=== PATIENT | male | born 1955 | race Caucasian/White ===

== ENCOUNTER 2023-10-14 12:27 | Inpatient (IN) | payer MEDICARE, OTHER, SELFPAY ==
[2023-10-14] VITALS (14 sets, daily range): BP systolic 124–170; BP diastolic 86–111; BMI 29.9
[2023-10-14 09:05] LABS: Hematocrit 44.2 % (39.0-52.0); Mean Corp Hgb Conc. 36.2 g/dL (33.0-37.0); Mean Corpuscular Hgb 30.2 pg (27.0-31.0); Mean Corpuscular Volume 83.4 fL (80.0-94.0); Mean Platelet Volume 9.4 fL (7.4-10.4); Platelet Count 220 10^3/uL (130-400); Red Cell Dist. Width 12.2 % (11.5-14.5)
[2023-10-14] MEDS: LOW STRENGTH ASPIRIN 81 MG PO (09:15)
[2023-10-14] MEDS: NSS 283 ML IV (09:15)
[2023-10-14 09:17] LABS: Blood Urea Nitrogen 26 mg/dl (9-20); Calcium 9.5 mg/dl (8.4-10.2); Carbon Dioxide 26 mmol/L (22-30); Chloride 104 mmol/L (98-107); Estimated Creatinine Clearance 74 ml/min; Glucose 152 mg/dl (70-99); Potassium 3.9 mmol/L (3.5-5.1); Sodium 138 mmol/L (135-145); eGFR > 60.00
--- NOTE | 2023-10-14 13:23 | ITS.CL.CATH ---
Licensed Appraiser - Catheterization
Cardiac Catheterization
Procedure Report:
CARDIAC CATHETERIZATION REPORT
Date of Procedure: 10/14/2023
Referring: Denice Diaz MD
Indication: High risk stress test
HEMODYNAMIC DATA
AO: 146/88
LV: 146/12
LEFT VENTRICULOGRAPHY: Normal left ventricular wall motion with EF 59%
CORONARY ANGIOGRAPHY
Dominance: Right
Left Main: Short without focal stenosis
LAD: There is a 90% proximal LAD stenosis with poststenotic dilatation. This lesion is immediately proximal to the medium sized first diagonal branch takeoff. There is a 60% LAD stenosis spanning the takeoff of the large second septal trimming assembler
and medium to large second diagonal branch. There is a 70% mid to distal LAD stenosis and 80% apical LAD stenosis. There is slightly decremental flow in the terminal LAD
Circumflex: 30% proximal circumflex stenosis with focal eccentric 50% mid circumflex stenosis. OM1 is tiny. OM 2 is medium to large with tandem 80% and 60% proximal stenoses. OM 3 is a small to medium size vessel. The circumflex terminates with
a large OM 4 which has 60% proximal stenosis and a single small posterolateral branch
RCA: 30% proximal RCA stenosis with focal 80% mid RCA stenosis. There is 70% mid RPDA stenosis. The RCA terminates with a medium sized RPL 1 and a small RPL 2.
Closure Device: None-the procedure was performed via the right radial artery. The William's test was normal prior to the procedure.
Radiation (mGy): 348
DAP (cm2.Gy): 26.6
Fluoroscopy time: 2.8 minutes
CONCLUSIONS
1: Systemic hypertension
2: Normal left ventricular function with EF 59%
3. Severe triple-vessel CAD as described
4. Given the decremental flow into the apical LAD, we will keep the patient for inpatient CABG
5. Although full revascularization may not be possible, complete revascularization would include bypass graft to LAD, major diagonal branch OM2, OM 4, RPDA, and RPL
Copy to: Félix Astorga DO, Sangita Rogers MD
Nemesio Childs MD, FORMERLY [facility], [facility]
[2023-10-14 13:26] LABS: Glucose - Point of Care 129 mg/dl (70-99)
[2023-10-14 13:55] LABS: APTT 94.2 Sec (23.4-35.0)
--- NOTE | 2023-10-14 13:58 | CONSULT.CT ---
Addendum entered and electronically signed by Luther Stewart MD 10/15/23 09:32:
I saw and examined the patient.
The PA's note was reviewed and I agree with the note.
Comment:
I met with Mr. George today at the bedside. Relatively new diagnosis of DM, A1c he tells me ranges in the 7s. No chest pain, but underwent a stress echo/nuc study which showed regional wall motion abnormality leading to a LHC. We reviewed his
LHC and also the conduct of heart surgery. He is otherwise independent and fully functional. I discussed the STS risk associated with iso CABG. We discussed the details of CABG and he is amenable to moving forward, which is my recommendation. Plan
for surgery with me on Tuesday as a to follow case.
Original Note:
Consultation
-
Date/Time Consultation Requested: 10/14/23
Date/Time Consultation Performed: 10/14/23 1400
Requesting Provider: Dr. Nemesio Childs MD
Performing Provider: Cherelle Bender PA-C on behalf of Dr. Luther Stewart MD.
Reason for Consultation: Evaluation for coronary artery revascularization
Patient History
Physicians
Family Physician: Dr. Diaz Rogers MD.
Outpatient Lieutenant Shift Supervisor: Dr. Félix Astorga DO. [facility] Cardiology
Inpatient Lieutenant Shift Supervisor: Dr. Sean Childs MD.
History of Present Illness
Patient is an extremely pleasant 68-year-old male with a H bladder cancer, 2014 treated with multiple surgeries and chemotherapy, hypertension, hyperlipidemia, pwf-nhhawkm-bffmnpnrr diabetes mellitus type 2, new RBBB, and tobacco abuse,
former smoker (Quit in 2008. Smoked for roughly 30 years at his heaviest of 1 pack/day).
Patient was overall asymptomatic. He was referred to cardiology Dr. Félix Ordoñez DO. By his PCP for continued management of his ongoing hypertension. Upon this visit the patient was found to have a right bundle branch block. Transthoracic echo
and exercise treadmill stress test were ordered. Stress test was abnormal prompting workup with outpatient cardiac catheterization.
Subsequent cardiac catheterization performed by Dr. Childs on 10/14/23 revealed MV CAD with preserved LVEF of 59%. LAD: 90%, 60% spanning t/o of large septal scallop cutter machine. 70% mid to distal. LCx: 30% prox, 50% mid. OM1 is tiny, OM2 80 & 60% prox
stenosis. OM4 60% prox. RCA: 30% prox, 80% mid. RPDA: 70% mid.
Given the above findings, the cardiothoracic surgery service was consulted for coronary artery revascularization evaluation.
Past Medical History
Past Medical History: Other
Bladder cancer, 2014 treated with multiple surgeries and chemotherapy
Hypertension
Hyperlipidemia
Pxf-gjggttm-tllsbujus diabetes mellitus type 2
New RBBB
Tobacco abuse, former smoker (Quit in 2008. Smoked for roughly 30 years at his heaviest of 1 pack/day).
Past Surgical History
Multiple surgeries for bladder cancer
Dental History
Noncontributory
Family History
Mother: at Age (70's) and Cause of (Complications with Hodgkin's lymphoma)
Father: at Age (80s) and Cause of (Complications with brain hemorrhage)
Social History
Alcohol: None
Drug: None
Tobacco: Former Smoker (Quit in 2008. Smoked for roughly 30 years at his heaviest of 1 pack/day)
Personal: Single
Living: With Spouse
Employment: Retired (Formally worked in [employer])
Allergies
Allergy/AdvReac Type Severity Reaction Status Date / Time
No Known Drug Allergies Allergy Unknown Verified 10/14/23 08:43
Home Medications
Medication Instructions Recorded Confirmed Type
aspirin 81 mg tablet 81 mg PO DAILY 10/14/23 10/14/23 History
empagliflozin 10 mg tablet 10 mg PO DAILY 10/14/23 10/14/23 History
fluticasone propionate 50 1 spray intranasal DAILY PRN dry 10/14/23 10/14/23 History
mcg/actuation nasal nose
spray,suspension
magnesium glycinate 100 mg tablet 400 mg PO DAILY 10/14/23 10/14/23 History
metformin 500 mg tablet,extended 1,500 mg PO QPM 10/14/23 10/14/23 History
release 24 hr
metoprolol succinate 50 mg 50 mg PO DAILY 10/14/23 10/14/23 History
tablet,extended release 24 hr
nifedipine 60 mg tablet,extended 60 mg PO DAILY 10/14/23 10/14/23 History
release 24 hr
olmesartan 40 1 tab PO DAILY 10/14/23 10/14/23 History
mg-hydrochlorothiazide 12.5 mg
tablet
psyllium 1 packet PO DAILY 10/14/23 10/14/23 History
sildenafil 100 mg tablet 100 mg PO DAILY 10/14/23 10/14/23 History
simvastatin 20 mg tablet 20 mg PO HS 10/14/23 10/14/23 History
Review of Systems
-
History Source: Patient
General: Denies Fever, Weight Gain, Weight Loss or Fatigue
HEENT: Denies Visual Changes, Dysphagia or Hoarseness
Respiratory: Denies SOB, DECKER, Cough, Asthma or PND
Cardiac: Denies Chest Pain, CAD, Known Vascular Disease, Palpitations, Nausea, Vomiting, Diaphoresis or Edema
Abdomen/GI: Denies Abdominal Pain, Reflux, Indigestion, Nausea, Vomiting, BRBPR or Ulcers
: Reports Nocturia (average 1x/night ); Denies Dysuria, Frequency, Urgency or Hematuria
Musculoskeletal: Denies Myalgias or Arthralgias
Skin: Denies Rash
Neurological: Denies CVA, TIA, Headaches, Syncope or Seizures
Vascular: Denies Claudication or PVD
Physical Exam
Vital Signs
Temp 97.9 F 10/14/23 12:54
Temp route: Oral 10/14/23 12:54
Pulse 69 10/14/23 11:40
Resp Rate 18 10/14/23 12:54
Blood pressure 153/95 10/14/23 09:06
Blood pressure extremity used: Left upper arm 10/14/23 12:54
Position: Lying 10/14/23 12:54
MAP (cuff-Dwaine Monitor) 114 10/14/23 08:50
SaO2 98 10/14/23 12:54
Oxygen Mode of Delivery Room air 10/14/23 12:54
Can the patient verbally communicate their pain? Yes 10/14/23 09:06
Actual Weight 208 lb 1.862 oz 10/14/23 08:42
Body Mass Index (BMI) 29.9 10/14/23 08:42
Labs
10/14/23 08:28
10/14/23 08:28
APTT 94.2 Sec (23.4-35.0) H 10/14/23 13:30
Diagnostic Studies
Cardiac catheterization 10/14/23: Guidera
EF of 59%
LAD: 90% stenosis, 60% spanning t/o of large septal scallop cutter machine. 70% mid to distal. Slightly decremental flow in the terminal LAD
LCx: 30% prox, 50% mid.
OM1 is tiny, OM2 80 & 60% prox stenosis. OM4 60% prox.
RCA: 30% prox, 80% mid.
RPDA: 70% mid.
Echocardiogram 09/29/23: Félix Astorga
EF 60-65%
MV: Trace MR
AV: Mild AI
TV: mild TR
PV: mild PA
LVSD: 30
LVDD: 50
PAP: 26
Exam
General: Well Developed, Well Nourished and No Apparent Distress
HEENT: Normocephalic, Moist Mucous Membranes, Atraumatic, PERRLA and EOMI
Neck: Trachea Midline; Negative Carotid Bruit
Respiratory: Clear; Negative Wheezes, Crackles, Rhonchi or Accessory Muscle Use
Cardiac: S1/S2 and Regular Rhythm; Negative Murmur, Rub or Gallop
GI: Soft, Non Tender, Non Distended and Other (Decreased bowel sounds)
Rectal: Deferred by Provider
Skin: Warm and Dry; Negative Rash
Neuro: AO x 3, No Motor Deficits and CN X-XII Intact
Extremities: Negative Upper Level Edema, Lower Level Edema, Upper Level Cyanosis, Lower Level Cyanosis, Upper Level Clubbing or Lower Level Clubbing
Psych: Calm
Assessment / Plan
-
Assessment:
68-year-old male with PMH of:
Bladder cancer, 2013 treated with multiple surgeries and chemotherapy
Hypertension
Hyperlipidemia
Eoj-qtwfers-ymjjretzi diabetes mellitus type 2
New RBBB
Tobacco abuse, former smoker (Quit in 2008. Smoked for roughly 30 years at his heaviest of 1 pack/day).
Now with newly diagnosed:
MV CAD
Plan:
Patient's case will be discussed with attending physician Dr. Pat MD.
Routine cardiothoracic surgery preoperative workup will be ordered.
Continue primary management per cardiology.
Heparin drip management per cardiology.
Further details requiring surgical intervention will be determined after Dr. Stewart's full review.
Patient has a [id number] score of 3
STS risk stratificaton will be calculated after all of the patient's data has been gathered.
[2023-10-14] MEDS: NSS 1000 IV (14:06)
[2023-10-14] MEDS: TYLENOL 650 MG PO (15:25)
[2023-10-14] MEDS: PROCARDIA XL (EXTENDED RELEASE) 60 MG PO (15:26)
--- NOTE | 2023-10-14 15:44 | CM ---
Chart reviewed. Patient is independent of ADLS, lives with his in a 1 STH, 2 ABE, 0 DME. Patient is going for a CABG on 10/17. Plan is for the patient to return home with CT Transitional RN. CM to follow
--- NOTE | 2023-10-14 16:09 | CM ---
Preoperative and postoperative instructions and restrictions educated to the patient and family, along with showering instructions. Cardiac Surgery Book given to the patient. Patient is agreeable to a home visit by CT Transitional RN. NIKIA to follow
[2023-10-14] MEDS: HEPARIN 25000 UNITS/250 ML IV (16:31)
[2023-10-14 16:59] LABS: Glucose - Point of Care 133 mg/dl (70-99)
[2023-10-14] MEDS: BENICAR 40 MG PO (17:00)
[2023-10-14] MEDS: NOVOLOG FLEXPEN-MODERATE RESISTANCE SC (17:01)
[2023-10-14] MEDS: LIPITOR 40 MG PO (18:24)
[2023-10-14] MEDS: ZOFRAN ODT (ORALLY DISINTEGRATING) 4 MG SL (18:25)
--- NOTE | 2023-10-14 21:46 | PTCARENOTE ---
Received patient at change of shift this PM. AAOx3. VSS. He is NSR on the monitor with BBB and occasional PACs. INT patent. Heparin gtt running at 10mL/hr. Right radial site appears clean, dry, and intact. No bleeding. No hematoma. He denies chest
pain or discomfort. Plan of care discussed. He is receptive to teaching and motivated. He understands that the plan is going to be for surgery on Tuesday (10/17). He denies pain and appears comfortable in bed at this time. Will continue to monitor.
[2023-10-14 21:56] LABS: Glucose - Point of Care 147 mg/dl (70-99)
[2023-10-14 23:01] LABS: APTT 33.3 Sec (23.4-35.0)
[2023-10-15 05:23] VITALS: BP 138/88
[2023-10-15 05:35] VITALS: BMI 29.1
[2023-10-15 06:07] LABS: INR 1.17; PT 14.8 Sec (11.4-14.6)
[2023-10-15 06:08] LABS: APTT 44.8 Sec (23.4-35.0)
[2023-10-15 06:14] LABS: ALT (SGPT) 20 U/L (0-50); AST (SGOT) 18 U/L (17-59); Albumin 3.8 g/dl (3.5-5.0); Alkaline Phosphatase 87 U/L (38-126); Blood Urea Nitrogen 22 mg/dl (9-20); Calcium 8.9 mg/dl (8.4-10.2); Carbon Dioxide 25 mmol/L (22-30); Chloride 106 mmol/L (98-107); Direct Bilirubin 0.5 mg/dl (0.0-0.4); Estimated Creatinine Clearance 82 ml/min; Glucose 152 mg/dl (70-99); HDL Cholesterol 39 mg/dl; LDL Cholesterol, Calculated 39 mg/dl; Potassium 3.6 mmol/L (3.5-5.1); Sodium 134 mmol/L (135-145); Total Bilirubin 0.9 mg/dl (0.2-1.3); Total Cholesterol 149 mg/dl (50-199); Triglyceride 355 mg/dl (10-149); Very Low Density Lipoprotein 71 mg/dl (0-30); eGFR > 60.00
[2023-10-15 07:38] VITALS: BP 127/91
[2023-10-15 07:43] LABS: Glucose - Point of Care 152 mg/dl (70-99)
--- NOTE | 2023-10-15 08:15 | W.PN.CD ---
Today's Communication / Plan
-
continue hep gtt
continue med management of cad
await cab
ok to shower
Impression / Plan
-
Outpatient Thermal Cutter Hand: Dr. Félix Astorga DO. [facility] Cardiology
CAD:
-plan for CAB Tuesday
-slow flow in LAD--Continue heparin gtt with intensive lab monitoring
-ok to shower
-BB, ARB, high dose statin
Hypertension
-chronic continue
Hyperlipidemia
-chronic continue high dose statin
Jvv-kevbina-qpuuegccq diabetes mellitus type 2
New RBBB
Tobacco abuse, former smoker (Quit in 2008.� Smoked for roughly 30 years at his heaviest of 1 pack/day)
Subjective: He is feeling better, chavira and nausea last night resolved would like to shower.
Cath 10/14/23:
CORONARY ANGIOGRAPHY
Dominance: Right
Left Main: Short without focal stenosis
LAD: There is a 90% proximal LAD stenosis with poststenotic dilatation.� This lesion is immediately proximal to the medium sized first diagonal branch takeoff.� There is a 60% LAD stenosis spanning the takeoff of the large second septal signal system testing maintainer
and medium to large second diagonal branch.� There is a 70% mid to distal LAD stenosis and 80% apical LAD stenosis.� There is slightly decremental flow in the terminal LAD
Circumflex: 30% proximal circumflex stenosis with focal eccentric 50% mid circumflex stenosis.� OM1 is tiny.� OM 2 is medium to large with tandem 80% and 60% proximal stenoses.� OM 3 is a small to medium size vessel.� The circumflex terminates with
a large OM 4 which has 60% proximal stenosis and a single small posterolateral branch
RCA: 30% proximal RCA stenosis with focal 80% mid RCA stenosis.� There is 70% mid RPDA stenosis.� The RCA terminates with a medium sized RPL 1 and a small RPL 2.
CONCLUSIONS
1:� Systemic hypertension
2:� Normal left ventricular function with EF 59%
3.� Severe triple-vessel CAD as described
4.� Given the decremental flow into the apical LAD, we will keep the patient for inpatient CABG
5.� Although full revascularization may not be possible, complete revascularization would include bypass graft to LAD, major diagonal branch OM2, OM 4, RPDA, and RPL
Echocardiogram 09/29/23: Félix Astorga
EF 60-65%
MV: Trace MR
AV: Mild AI
TV: mild TR
PV: mild TX
LVSD: 30
LVDD: 50
PAP: 26
Physical Exam
Vital Signs/Labs
Vital Signs
Temp Pulse Resp BP Pulse Ox
97.8 F 77 16 127/91 97
10/15/23 07:43 10/15/23 07:45 10/15/23 07:43 10/15/23 07:38 10/15/23 07:43
10/14/23 10/15/23 10/16/23
06:59 06:59 06:59
Actual Weight 92 kg
10/14/23 08:28
10/15/23 05:35
PT 14.8 Sec (11.4-14.6) H 10/15/23 05:35
INR 1.17 10/15/23 05:35
APTT 44.8 Sec (23.4-35.0) H 10/15/23 05:35
Triglycerides 355 mg/dl (10-149) H 10/15/23 05:35
LDL Cholesterol, Calc 39 mg/dl 10/15/23 05:35
VLDL Cholesterol, Calc 71 mg/dl (0-30) H 10/15/23 05:35
HDL Cholesterol 39 mg/dl 10/15/23 05:35
Physical Exam
Constitutional: No acute distress
Cardiovascular: Rhythm & rate is regular, Pedal edema is absent, JVD pressure is normal, Systolic murmur absent and Diastolic murmur absent
Respiratory: Respiratory effort normal, Lungs clear to auscul., Wheeze Absent, Crackles Absent and Rhonchi Absent
GI: Soft
Neuro/Psych: AO x 3
Data Reviewed
-
Date of Service: October 15, 2023
X-Ray/CT/US/MRI/NUC/PET: Discussed with Nurse (ok to shower then resume hep)
[2023-10-15] MEDS: TOPROL XL 50 MG PO (09:46)
[2023-10-15] MEDS: ASPIR LOW (ENTERIC COATED) 81 MG PO (09:46)
[2023-10-15] MEDS: JARDIANCE 10 MG PO (09:47)
[2023-10-15] MEDS: PROCARDIA XL (EXTENDED RELEASE) 60 MG PO (09:48)
[2023-10-15] MEDS: ORETIC 12.5 MG PO (09:48)
[2023-10-15] MEDS: NOVOLOG FLEXPEN-MODERATE RESISTANCE 1 UNITS SC (09:50)
[2023-10-15] MEDS: BENICAR 40 MG PO (10:41)
[2023-10-15 10:57] LABS: Glycohemoglobin (HgbA1c) 7.3 % (4.0-5.6)
--- NOTE | 2023-10-15 11:11 | PTCARENOTE ---
Received patient this morning resting in bed, IV heparin infusing at 1400 units/hr. Patient offers no complaints, seen by CT surgery and cardiology.
[2023-10-15 11:15] VITALS: BP 135/92
[2023-10-15 12:31] LABS: Glucose - Point of Care 138 mg/dl (70-99)
[2023-10-15] MEDS: NOVOLOG FLEXPEN-MODERATE RESISTANCE SC ×2 (12:39→16:56)
[2023-10-15] MEDS: HEPARIN 25000 UNITS/250 ML IV (12:39)
[2023-10-15 13:04] LABS: APTT 50.3 Sec (23.4-35.0)
[2023-10-15 15:35] VITALS: BP 122/87
[2023-10-15 16:54] LABS: Glucose - Point of Care 138 mg/dl (70-99)
[2023-10-15] MEDS: LIPITOR 40 MG PO (17:23)
--- NOTE | 2023-10-15 17:39 | W.PN.UPDATE ---
Update Note
Progress Note Update
Procedure Type:�Isolated CABG
PERIOPERATIVE OUTCOME ESTIMATE %
Operative Mortality 0.362%
Morbidity & Mortality 2.51%
Stroke 0.335%
Renal Failure 0.204%
Reoperation 1.38%
Prolonged Ventilation 1.17%
Deep Sternal Wound Infection 0.092%
Long Hospital Stay (>14 days) 1.56%
Short Hospital Stay (<6 days)* 74.3%
[2023-10-15] MEDS: MIRALAX 17 GRAMS PO (18:09)
[2023-10-15 19:17] VITALS: BP 135/95
[2023-10-15] MEDS: NON-FORMULARY ITEM 1 SPRAY NASAL (19:27)
[2023-10-15] MEDS: FLUSH (NSS) 1 FLUSH IV (19:28)
[2023-10-15 19:52] LABS: APTT 51.8 Sec (23.4-35.0)
--- NOTE | 2023-10-15 20:45 | PTCARENOTE ---
Received patient at change of shift this PM. AAOx3. VSS. He is NSR on the monitor with BBB and occasional PACs. HR in the 60s-70s. INT patent. Heparin gtt running at 16mL/hr. Right radial site appears BENDING MACHINE OPERATOR and clean, dry, and intact. He denies chest
pain or discomfort. Plan of care discussed. He is receptive to teaching and motivated. We discussed his medications and he has no further questions about these at this time. He understands that he is to keep having his PTT checked into therapeutic.
He appears comfortable in bed with at the bedside. Will continue to monitor.
[2023-10-15 21:43] LABS: Glucose - Point of Care 106 mg/dl (70-99)
[2023-10-15 22:49] VITALS: BP 136/89
[2023-10-15] MEDS: KCL 40 MEQ PO (22:50)
--- NOTE | 2023-10-15 23:23 | W.PN.CT ---
Assessment / Plan
-
Assessment:
-Severe 3v CAD
-LVEF 60-65% per echo
-New RBBB
-Hypertension
-Hyperlipidemia
-T2DM (A1C 7.3)
-Class 1 obesity (BMI 30)
-Hyponatremia (134)
-Tobacco abuse, former smoker (Quit in 2008.� Smoked for roughly 30 years at his heaviest of 1 pack/day)
-Bladder Ca S/p Multiple surgeries, plus chemotherapy
Plan:
-Cont. current medical management
-Cont. current meds (ASA, Heparin gtt, Toprol XL, Nifedipine; Avoid ARBs/JESUS-I 24-48hrs prior to CABG)
-Placed Benicar on hold in preparation for CABG
-Ongoing preop evaluation
-For CABG (2nd case) by Dr. Stewart Tuesday, 10/17
-Will stop Heparin gtt second cutter to OR
-Will cont. to closely monitor
Subjective
-
Date of Service: October 15, 2023
Objective Data
-
Lab Results
10/14/23 08:28
10/15/23 05:35
PT 14.8 Sec (11.4-14.6) H 10/15/23 05:35
INR 1.17 10/15/23 05:35
APTT 51.8 Sec (23.4-35.0) H 10/15/23 19:27
Vital Signs
Vital Signs
Temp Pulse Resp BP Pulse Ox
98.0 F 63 16 135/95 95
10/15/23 22:51 10/15/23 19:30 10/15/23 22:51 10/15/23 19:17 10/15/23 22:51
CT Intake/Output/Weight
10/15/23 10/15/23 10/16/23
06:59 18:59 06:59
Intake Total 240 / 1209 480 / 960 480 / 960
Balance 240 / 1209 480 / 960 480 / 960
SaO2: 95
[2023-10-16 02:52] VITALS: BP 129/93
[2023-10-16 03:06] VITALS: BMI 29.1
[2023-10-16 03:08] LABS: Hematocrit 40.2 % (39.0-52.0); Hemoglobin 14.9 g/dL (13.0-18.0); Mean Corp Hgb Conc. 37.1 g/dL (33.0-37.0); Mean Corpuscular Hgb 30.7 pg (27.0-31.0); Mean Corpuscular Volume 82.7 fL (80.0-94.0); Mean Platelet Volume 9.3 fL (7.4-10.4); Platelet Count 183 10^3/uL (130-400); Red Blood Cell Count 4.86 10^6/uL (4.70-6.10); Red Cell Dist. Width 12.1 % (11.5-14.5)
[2023-10-16 03:25] LABS: APTT 96.4 Sec (23.4-35.0)
[2023-10-16] MEDS: HEPARIN 25000 UNITS/250 ML IV ×2 (03:38→17:59)
[2023-10-16 04:12] LABS: Blood Urea Nitrogen 25 mg/dl (9-20); Calcium 9.1 mg/dl (8.4-10.2); Carbon Dioxide 27 mmol/L (22-30); Chloride 105 mmol/L (98-107); Estimated Creatinine Clearance 82 ml/min; Glucose 121 mg/dl (70-99); Magnesium 2.2 mg/dl (1.6-2.3); Potassium 4.3 mmol/L (3.5-5.1); Sodium 135 mmol/L (135-145); eGFR > 60.00
--- NOTE | 2023-10-16 05:07 | W.PN.CT ---
Today's Communication / Plan
-
Plan:
-Cont. current medical management
-Cont. current meds (ASA, Heparin gtt, Toprol XL, Nifedipine; Avoid ARBs/JESUS-I 24-48hrs prior to CABG)
-Placed Benicar on hold in preparation for CABG
-Ongoing preop evaluation
-For CABG (2nd case) by Dr. Stewart tomorrow, 10/17
-Will stop Heparin gtt production support developer to OR
-Will cont. to closely monitor
Assessment / Plan
-
Assessment:
-Severe 3v CAD
-LVEF 60-65% per echo
-New RBBB
-Hypertension
-Hyperlipidemia
-T2DM (A1C 7.3)
-Class 1 obesity (BMI 30)
-Hyponatremia (134)
-Tobacco abuse, former smoker (Quit in 2008.� Smoked for roughly 30 years at his heaviest of 1 pack/day)
-Bladder Ca S/p Multiple surgeries, plus chemotherapy
Discussed patient care with: Cardiology, Nursing, Pharmacy and Care Team
Subjective
-
Date of Service: October 16, 2023
Pt denies CP/SOB overnight
Objective Data
-
Lab Results
10/16/23 03:01
10/16/23 03:01
PT 14.8 Sec (11.4-14.6) H 10/15/23 05:35
INR 1.17 10/15/23 05:35
APTT 96.4 Sec (23.4-35.0) H 10/16/23 03:01
Vital Signs
Vital Signs
Temp Pulse Resp BP Pulse Ox
98.2 F 65 16 129/93 96
10/16/23 03:06 10/16/23 03:00 10/16/23 03:06 10/16/23 02:52 10/16/23 03:06
CT Intake/Output/Weight
10/15/23 10/15/23 10/16/23
06:59 18:59 06:59
Intake Total 240 / 1209 480 / 960 480 / 960
Balance 240 / 1209 480 / 960 480 / 960
SaO2: 96 (RA)
Physical Exam
-
General: Awake, Oriented and AOx3
Cardiovascular: Regular rate & rhythm and No Murmurs
Respiratory: Clear
Extremities: No Edema
Data Reviewed
-
Lab Results: Results Reviewed
Medications: Active Meds Reviewed
Chest X-Ray: Report Reviewed and Image Reviewed
ECG: Report Reviewed and Image Reviewed
[2023-10-16 07:08] VITALS: BP 133/92
[2023-10-16 07:13] LABS: Glucose - Point of Care 143 mg/dl (70-99)
[2023-10-16] MEDS: NOVOLOG FLEXPEN-MODERATE RESISTANCE SC ×3 (07:41→17:58)
[2023-10-16] MEDS: JARDIANCE 10 MG PO (08:37)
[2023-10-16] MEDS: ASPIR LOW (ENTERIC COATED) 81 MG PO (08:37)
[2023-10-16] MEDS: NON-FORMULARY ITEM 1 SPRAY NASAL (08:37)
[2023-10-16] MEDS: TOPROL XL 50 MG PO (08:38)
[2023-10-16] MEDS: ORETIC 12.5 MG PO (08:38)
[2023-10-16] MEDS: MIRALAX 17 GRAMS PO (08:38)
[2023-10-16] MEDS: PROCARDIA XL (EXTENDED RELEASE) 60 MG PO (08:38)
--- NOTE | 2023-10-16 09:16 | W.PN.CD ---
Today's Communication / Plan
-
conitnue hep gtt
CAB 10/17/[address] Stewart planned
continue current medications
Impression / Plan
-
Outpatient Antique Furniture Reproducer: Dr. Félix Astorga DO. [facility] Card[facility]
CAD:
-plan for CAB Tuesday with Dr Stewart
-slow flow in LAD--Continue heparin gtt with intensive lab monitoring
-ok to shower
-BB, ARB, high dose statin
Hypertension
-chronic continue
Hyperlipidemia
-chronic continue high dose statin
Ppz-ejccrsn-ilceoutop diabetes mellitus type 2
New RBBB
Tobacco abuse, former smoker (Quit in 2008.� Smoked for roughly 30 years at his heaviest of 1 pack/day)
Subjective: He is feeling well no complaint of cp or sob.
Cath 10/14/23:
CORONARY ANGIOGRAPHY
Dominance: Right
Left Main: Short without focal stenosis
LAD: There is a 90% proximal LAD stenosis with poststenotic dilatation.� This lesion is immediately proximal to the medium sized first diagonal branch takeoff.� There is a 60% LAD stenosis spanning the takeoff of the large second septal preschool assistant
and medium to large second diagonal branch.� There is a 70% mid to distal LAD stenosis and 80% apical LAD stenosis.� There is slightly decremental flow in the terminal LAD
Circumflex: 30% proximal circumflex stenosis with focal eccentric 50% mid circumflex stenosis.� OM1 is tiny.� OM 2 is medium to large with tandem 80% and 60% proximal stenoses.� OM 3 is a small to medium size vessel.� The circumflex terminates with
a large OM 4 which has 60% proximal stenosis and a single small posterolateral branch
RCA: 30% proximal RCA stenosis with focal 80% mid RCA stenosis.� There is 70% mid RPDA stenosis.� The RCA terminates with a medium sized RPL 1 and a small RPL 2.
CONCLUSIONS
1:� Systemic hypertension
2:� Normal left ventricular function with EF 59%
3.� Severe triple-vessel CAD as described
4.� Given the decremental flow into the apical LAD, we will keep the patient for inpatient CABG
5.� Although full revascularization may not be possible, complete revascularization would include bypass graft to LAD, major diagonal branch OM2, OM 4, RPDA, and RPL
Echocardiogram 09/29/23: Félix Astorga
EF 60-65%
MV: Trace MR
AV: Mild AI
TV: mild TR
PV: mild MI
LVSD: 30
LVDD: 50
PAP: 26
Physical Exam
Vital Signs/Labs
Vital Signs
Temp Pulse Resp BP Pulse Ox
97.9 F 73 20 133/92 97
10/16/23 07:04 10/16/23 07:30 10/16/23 07:04 10/16/23 07:08 10/16/23 07:04
10/15/23 10/16/23 10/17/23
06:59 06:59 06:59
Actual Weight 92 kg 91.9 kg
10/16/23 03:01
10/16/23 03:01
PT 14.8 Sec (11.4-14.6) H 10/15/23 05:35
INR 1.17 10/15/23 05:35
APTT 96.4 Sec (23.4-35.0) H 10/16/23 03:01
Magnesium 2.2 mg/dl (1.6-2.3) 10/16/23 03:01
Triglycerides 355 mg/dl (10-149) H 10/15/23 05:35
LDL Cholesterol, Calc 39 mg/dl 10/15/23 05:35
VLDL Cholesterol, Calc 71 mg/dl (0-30) H 10/15/23 05:35
HDL Cholesterol 39 mg/dl 10/15/23 05:35
Physical Exam
Constitutional: No acute distress
Cardiovascular: Rhythm & rate is regular, Pedal edema is absent, JVD pressure is normal, Systolic murmur absent and Diastolic murmur absent
Respiratory: Respiratory effort normal, Lungs clear to auscul., Wheeze Absent, Crackles Absent and Rhonchi Absent
GI: Soft
Neuro/Psych: AO x 3
Data Reviewed
-
Date of Service: October 16, 2023
EKG: Other (tele nsr)
[2023-10-16 09:44] LABS: APTT 101.2 Sec (23.4-35.0)
--- NOTE | 2023-10-16 10:48 | PTCARENOTE ---
Received patient this morning sitting at the side of the bed. IV heparin infusing at 1800 units/hr. Repeat PTT done this AM and is at a therapeutic level. Patient had been complaining of constipation, after second dose of mirlax this morning had a
large bowel movement.
[2023-10-16 11:29] VITALS: BP 126/92
[2023-10-16 12:13] LABS: Glucose - Point of Care 102 mg/dl (70-99)
[2023-10-16 16:42] VITALS: BP 123/79
[2023-10-16] MEDS: LIPITOR 40 MG PO (17:48)
[2023-10-16 17:57] LABS: Glucose - Point of Care 123 mg/dl (70-99)
[2023-10-16 19:43] VITALS: BP 124/86
[2023-10-16 22:09] VITALS: BP 142/99
[2023-10-16 22:13] LABS: Glucose - Point of Care 109 mg/dl (70-99)
[2023-10-17] VITALS (15 sets, daily range): BP systolic 86–136; BP diastolic 65–91; BMI 28.9
--- NOTE | 2023-10-17 01:20 | PTCARENOTE ---
Clip/prep done at hs, showered with 4 % CHG soap. Pre-op teaching done. Heparin infusing at 1800units/hr. NPO after MDN. SR on the monitor in the 60's.
[2023-10-17 06:56] LABS: Hematocrit 43.2 % (39.0-52.0); Hemoglobin 15.5 g/dL (13.0-18.0); Mean Corp Hgb Conc. 35.9 g/dL (33.0-37.0); Mean Corpuscular Hgb 30.2 pg (27.0-31.0); Mean Platelet Volume 9.1 fL (7.4-10.4); Platelet Count 192 10^3/uL (130-400); Red Blood Cell Count 5.14 10^6/uL (4.70-6.10); Red Cell Dist. Width 12.2 % (11.5-14.5); White Blood Cell Count 6.1 10^3/uL (4.8-10.8)
--- NOTE | 2023-10-17 07:08 | W.CVOR.SURPR ---
CVOR Surgeon Immed Pre Op
-
I have examined this patient prior to performance of the scheduled procedure.
The patient's condition is unchanged from the time of the dictated/written History and
Physical and the patient is able to undergo the scheduled procedure.
CABG
[2023-10-17] MEDS: BACTROBAN 2% OINTMENT 1 APPLIC NASAL ×2 (08:04→20:24)
[2023-10-17] MEDS: PROTONIX 40 MG PO (08:04)
[2023-10-17] MEDS: LOPRESSOR 12.5 MG PO (08:04)
[2023-10-17] MEDS: MAGNESIUM OXIDE 500 MG PO (08:05)
[2023-10-17] MEDS: ASPIR LOW (ENTERIC COATED) PO (08:05)
[2023-10-17] MEDS: JARDIANCE PO (08:05)
[2023-10-17] MEDS: TOPROL XL PO (08:06)
[2023-10-17] MEDS: MIRALAX PO (08:06)
[2023-10-17] MEDS: NON-FORMULARY ITEM NASAL (08:06)
[2023-10-17] MEDS: PROCARDIA XL (EXTENDED RELEASE) PO (08:06)
[2023-10-17] MEDS: ORETIC PO (08:06)
--- NOTE | 2023-10-17 08:17 | PTCARENOTE ---
Received patient this morning resting in bed. Patient had just finished morning shower, placed on telemetry since he is the second case. Patient seen by Dr. Stewart. Pre-op PO meds given with a sip of water as ordered. IV heparin infusing at 1800
units/hr, will discontinue primary special education teacher to the OR. at the bedside.
[2023-10-17 08:26] LABS: Blood Urea Nitrogen 25 mg/dl (9-20); Calcium 9.4 mg/dl (8.4-10.2); Carbon Dioxide 26 mmol/L (22-30); Chloride 104 mmol/L (98-107); Estimated Creatinine Clearance 74 ml/min; Glucose 140 mg/dl (70-99); Potassium 4.2 mmol/L (3.5-5.1); Sodium 136 mmol/L (135-145); eGFR > 60.00
[2023-10-17] MEDS: NOVOLOG FLEXPEN-MODERATE RESISTANCE SC ×2 (08:37→19:45)
--- NOTE | 2023-10-17 09:15 | W.PN.CD ---
Today's Communication / Plan
-
stable
brief asymptomatic SVT
plan for CABG
monitor rhythms post op
Impression / Plan
-
Outpatient Office Workforce Planner: Dr. Félix Astorga DO. [facility] Cardiology
CAD:
-plan for CAB Tuesday with Dr Stewart
-slow flow in LAD--Continue heparin gtt with intensive lab monitoring
-ok to shower
-BB, ARB, high dose statin
SVT - short run 20 beats . No symptoms.
- BB
- monitor post op
Hypertension
-chronic continue
Hyperlipidemia
-chronic continue high dose statin
Aqk-bfsdtma-qvsdzyaha diabetes mellitus type 2
New RBBB
Tobacco abuse, former smoker (Quit in 2008.� Smoked for roughly 30 years at his heaviest of 1 pack/day)
Subjective: He is feeling well no complaint of cp or sob.
Cath 10/14/23:
CORONARY ANGIOGRAPHY
Dominance: Right
Left Main: Short without focal stenosis
LAD: There is a 90% proximal LAD stenosis with poststenotic dilatation.� This lesion is immediately proximal to the medium sized first diagonal branch takeoff.� There is a 60% LAD stenosis spanning the takeoff of the large second septal chief supply chain officer
and medium to large second diagonal branch.� There is a 70% mid to distal LAD stenosis and 80% apical LAD stenosis.� There is slightly decremental flow in the terminal LAD
Circumflex: 30% proximal circumflex stenosis with focal eccentric 50% mid circumflex stenosis.� OM1 is tiny.� OM 2 is medium to large with tandem 80% and 60% proximal stenoses.� OM 3 is a small to medium size vessel.� The circumflex terminates with
a large OM 4 which has 60% proximal stenosis and a single small posterolateral branch
RCA: 30% proximal RCA stenosis with focal 80% mid RCA stenosis.� There is 70% mid RPDA stenosis.� The RCA terminates with a medium sized RPL 1 and a small RPL 2.
CONCLUSIONS
1:� Systemic hypertension
2:� Normal left ventricular function with EF 59%
3.� Severe triple-vessel CAD as described
4.� Given the decremental flow into the apical LAD, we will keep the patient for inpatient CABG
5.� Although full revascularization may not be possible, complete revascularization would include bypass graft to LAD, major diagonal branch OM2, OM 4, RPDA, and RPL
Echocardiogram 09/29/23: Félix Astorga
EF 60-65%
MV: Trace MR
AV: Mild AI
TV: mild TR
PV: mild NM
LVSD: 30
LVDD: 50
PAP: 26
Physical Exam
Vital Signs/Labs
Vital Signs
Temp Pulse Resp BP Pulse Ox
97.4 F 64 20 125/85 95
10/17/23 08:00 10/17/23 07:21 10/17/23 08:00 10/17/23 06:16 10/17/23 08:00
10/16/23 10/17/23 10/18/23
06:59 06:59 06:59
Actual Weight 91.9 kg 91.4 kg
10/17/23 06:41
10/17/23 06:41
PT 14.8 Sec (11.4-14.6) H 10/15/23 05:35
INR 1.17 10/15/23 05:35
APTT 101.2 Sec (23.4-35.0) H 10/16/23 09:15
Magnesium 2.2 mg/dl (1.6-2.3) 10/16/23 03:01
Triglycerides 355 mg/dl (10-149) H 10/15/23 05:35
LDL Cholesterol, Calc 39 mg/dl 10/15/23 05:35
VLDL Cholesterol, Calc 71 mg/dl (0-30) H 10/15/23 05:35
HDL Cholesterol 39 mg/dl 10/15/23 05:35
Physical Exam
Constitutional: No acute distress
Cardiovascular: Rhythm & rate is regular
Respiratory: Respiratory effort normal
GI: Soft
Neuro/Psych: Alert
Data Reviewed
-
Date of Service: October 17, 2023
Medical Decision Making: Reviewed Test Results
Echo: Report Reviewed by me
Medical Tests (PFT, Pathology etc): Report Reviewed by me
Labs: Labs Reviewed by me
--- NOTE | 2023-10-17 10:05 | CM ---
pt for OR/CABG today, cm to follow.
--- NOTE | 2023-10-17 10:34 | PTCARENOTE ---
CVOR called for the patient. OOB to void, CHG wipes done and IV heparin discontinued. Patient sent in his bed to the OR, report given to Keyla. waiting in the atrium lounge.
[2023-10-17 11:15] LABS: Urine Albumin Trace (Neg - Trace); Urine Bilirubin Negative (Negative); Urine Character Slightly Cloudy (Clear); Urine Color Yellow; Urine Glucose 3+ (Negative); Urine Ketone 1+ (Negative); Urine Leukocyte 2+ (Negative); Urine Nitrite Negative (Negative); Urine Occult Blood 1+ (Negative); Urine Urobilinogen Negative (Neg - 1+)
[2023-10-17 11:22] LABS: ACT+ - POC 101 Seconds (82-134)
[2023-10-17 11:26] LABS: Urine Bacteria Few (Negative); Urine White Cell 26-30 /HPF (0-5)
[2023-10-17 11:27] LABS: B.E. - POC -1.6 mmol/L; Glucose - POC 136 mg/dl (65-99); HCO3 - POC 23 mmol/L (21-29); Hematocrit - POC 40 % PCV (42-52); Hemodilution- POC Yes; Hemoglobin Calculated - POC 13.7; Ionized Calcium - POC 1.18 mmol/L (1.12-1.27); PCO2 - POC 39 mmHg (35-45); PO2 - POC 133 mmHg (80-100); Sodium - POC 140 mmol/L (135-145); pH - POC 7.38 (7.35-7.45)
--- NOTE | 2023-10-17 12:10 | CM ---
Chart reviewed. Patient is in the OR today. Patient is independent of ADLS, lives with his in a 1 STH, 2 ABE, 0 DME. Plan is for the patient to return home with CT Transitional RN. CM to follow
[2023-10-17 13:31] LABS: ACT+ - POC 713 Seconds (82-134)
[2023-10-17 13:55] LABS: B.E. - POC -0.2 mmol/L; Glucose - POC 142 mg/dl (65-99); HCO3 - POC 26 mmol/L (21-29); Hematocrit - POC 34 % PCV (42-52); Hemodilution- POC Yes; Hemoglobin Calculated - POC 11.6; Ionized Calcium - POC 1.06 mmol/L (1.12-1.27); O2 Saturation %Calculated-POC 99.9 5 (92-96); PCO2 - POC 48 mmHg (35-45); PO2 - POC 308 mmHg (80-100); Potassium - POC 4.8 mmol/L (3.6-5.0); Sodium - POC 139 mmol/L (135-145); pH - POC 7.34 (7.35-7.45)
[2023-10-17 14:03] LABS: ACT+ - POC 783 Seconds (82-134)
[2023-10-17 14:36] LABS: B.E. - POC -0.3 mmol/L; Glucose - POC 154 mg/dl (65-99); HCO3 - POC 26 mmol/L (21-29); Hematocrit - POC 36 % PCV (42-52); Hemodilution- POC Yes; Hemoglobin Calculated - POC 12.2; O2 Saturation %Calculated-POC 99.8 5 (92-96); PCO2 - POC 45 mmHg (35-45); PO2 - POC 243 mmHg (80-100); Potassium - POC 5.3 mmol/L (3.6-5.0); Sodium - POC 137 mmol/L (135-145); pH - POC 7.36 (7.35-7.45)
[2023-10-17 14:38] LABS: ACT+ - POC 773 Seconds (82-134)
[2023-10-17 15:24] LABS: ACT+ - POC 546 Seconds (82-134)
[2023-10-17 15:25] LABS: B.E. - POC -0.5 mmol/L; Glucose - POC 154 mg/dl (65-99); HCO3 - POC 25 mmol/L (21-29); Hematocrit - POC 36 % PCV (42-52); Hemodilution- POC Yes; Hemoglobin Calculated - POC 12.2; Ionized Calcium - POC 1.09 mmol/L (1.12-1.27); O2 Saturation %Calculated-POC 99.6 5 (92-96); PCO2 - POC 40 mmHg (35-45); PO2 - POC 180 mmHg (80-100); Potassium - POC 4.9 mmol/L (3.6-5.0); Sodium - POC 140 mmol/L (135-145); pH - POC 7.39 (7.35-7.45)
[2023-10-17 16:09] LABS: ACT+ - POC 101 Seconds (82-134)
[2023-10-17 16:11] LABS: Glucose - POC 127 mg/dl (65-99); HCO3 - POC 23 mmol/L (21-29); Hematocrit - POC 34 % PCV (42-52); Hemodilution- POC Yes; Hemoglobin Calculated - POC 11.4; Ionized Calcium - POC 1.16 mmol/L (1.12-1.27); O2 Saturation %Calculated-POC 97.9 5 (92-96); PCO2 - POC 41 mmHg (35-45); PO2 - POC 106 mmHg (80-100); Potassium - POC 4.6 mmol/L (3.6-5.0); Sodium - POC 140 mmol/L (135-145); pH - POC 7.37 (7.35-7.45)
--- NOTE | 2023-10-17 16:45 | W.PN.CT.SURG ---
CT Surgery Operative Note
-
CARDIAC SURGERY OPERATIVE REPORT
Preoperative Diagnosis: Multivessel Coronary Artery Disease with diabetes
Postoperative Diagnosis: Same
Procedure(s) Performed:
1. Standard sternotomy with aortic and right atrial cannulation
2. Coronary artery bypass grafting x 5 (In situ KLINE to LAD, Ao to RSVG to OM 2, Ao to RSVG to OM4, Ao to RSVG to RPDA seq to RPLB)
3. Endoscopic vein harvesting of right lower extremity
4. Placement of temporary biopolar right ventricular pacing wire
5. Transesophageal echocardiography
Date of Surgery: 10/17/2023
Comorbidities:
1. Multivessel CAD with ply-elqpuwh-ryijwvplo diabetes
2. History of multiple bladder cancer surgeries and chemotherapy
3. Abnormal stress test regional wall motion abnormality
4. Hypertension
5. Hyperlipidemia
6. Former tobacco abuse with 1 pack a day for approximately 30 years
Attending Surgeon: Luther Stewart MD, MS
Assistants: Cherelle Bender PA-C (present and necessary to geriatric assistant, endoscopic vein harvest, retraction, suction, exposure, suture management, and wound closure under my direction)
Anesthesiology: Cain Mohan MD and Janett Chairez CRNA
Scrub and Circulating RNs: Libra Gandhi / Alexander Roger, RN, Keyla Sr / Ariadna Klein RN
Automation Tender: Dianna Sanchez / Margaret Bacon CCP
Anesthesia: GETA
EBL: per perfusion records
Products: None
CPB Time: 134 minutes
Aortic Cross Clamp Time: 106 minutes
Indication(s) for Procedures: This is a 70-year-old male who was found to have multivessel coronary disease with limiting flow to his LAD in the setting of abnormal stress test. Is also relatively recently diagnosed with diabetes with an HbA1c in
the sevens. The STS risk was discussed with the patient and ultimately the patient accepted the risks we decided to move forward with surgery.
Conduit(s) Quality:
KLINE -skeletonized/good quality, relatively thin but overall uniform with excellent flow
RSVG -good/relatively uniform in size, some minor varicosities and thickening
Target(s) Quality:
RPDA/RPL B-the RPL B branch was a suboptimal target that was extremely small with only approximately 20 cc a minute of flow at a pressure of 80 mmHg/the RPDA was a much better target with approximately 40 to 50 cc a minute of flow at a pressure of
80 mmHg with test dose of antegrade
OM2 - Average quality target / Also small in size, but had approximately 30cc/min of flow at 80mm Hg of antegrade testing
OM4 - Average quality target / Again, small in size, with 30-40cc/min of flow at 80mm Hg of antegrade testing
LAD - Good - this was the best target of all the distals/very intramyocardial covered in fat, difficult to visualize flow in the LAD territory though the apex and anterior lateral wall did pink up nicely after recent bulldog
Findings: Left ventricular ejection fraction preoperatively was 60% with no regional wall motion abnormalities. Following surgery his EF remained the same at 60% with no new regional wall motion abnormalities. EKG was isometric with no ST changes.
Cardiac index was 2 after cardiopulmonary bypass and grafting. The KLINE was harvested in a skeletonized fashion. Following bypass grafting, test dose cardioplegia was given down each distal and confirmed patency and hemostasis. Each distal was
probed both proximally and distally to confirm disease and patency, respectively. Again all targets were relatively small and heavily diseased throughout the vessel. The diagonal vessel was evaluated dissected however it was small and heavily
diseased proximally and distally so this was not grafted. The best target of all 5 was the LAD was a decent sized vessel was for a 1.5 mm probe. There is evidence of pinking of the apex and anterior lateral wall with removal of the bulldog clamp
as the LAD was intramyocardial and covered in fat visual flow was not able to be confirmed. Following surgery his cardiac index again was 2.0 without any inotropic support. He was on and off Levophed for vasoactive support. He regained sinus
rhythm after move the cross-clamp.
Description of Procedure: The patient was taken to the operating room. Their identity and procedure to be performed were verified and they were positioned supine on the operating table. Induction via general anesthesia with endotracheal intubation
was performed and central venous access and arterial monitoring were inserted. A preoperative transesophageal echocardiogram was performed to assess cardiac function and valvular function. The patient was then prepped and draped from chin to feet in
a sterile fashion. A preoperative time-out was performed with all members of the team present. A midline chest incision was performed along with median sternotomy. Simultaneous endoscopic access of the right lower extremity for saphenous vein
harvest was obtained along with administration of an initial 5,000 units of IV heparin. A RulTract sternal retractor was positioned to exposure the left internal mammary bed. The mammary was harvested and found to have good flow. A bulldog clamp was
applied to the distal end of the mammary after dividing it. It was wrapped in a papaverine soaked RayTec and replaced back into the left hemithorax. The RulTract was exchanged for a median sternal retractor. The innominate vein was isolated. Full
heparinization was given (a total of 40,000 units). We created a pericardial well. The aortic cannulation site was chosen where it was soft, pliable, and free of calcium. Cannulation was performed with an arterial cannula in the ascending aorta and
a triple-stage venous cannula through the right atrial appendage. The arterial cannula line had an appropriate bounce and correlating pressures with test dosing. Next, a root vent/antegrade cannula was inserted into the ascending aorta. The ACT was
confirmed to be over 400 and retrograde autologous priming was performed before commencing cardiopulmonary bypass. The pulmonary artery was away from the aorta to facilitate a clamp site. The aortic cross-clamp was placed after decreasing
the flow on the bypass and mean arterial pressure. A total of 1.2L initial dose of antegrade Del-Nido cardioplegia solution was given and planned for re-dosing every 75 minutes as necessary. There was rapid electro-mechanical arrest of the heart at
400 cc of cardioplegia. The left ventricle was observed for distention on echocardiogram and manual palpation. Cold slush was placed into a sponge and topically on the RV while we systemically cooled to 34 degrees centigrade.
I positioned the heart to expose the distal right coronary at the posterior descending artery and the posterior lateral branch. I decided to perform a sequential graft.. A [place] blade was used to expose the coronary and perform the arteriotomy.
Coronary Walters scissors were used to enlarge the incision. The saphenous vein was trimmed and beveled to an appropriate size. The distal anastomosis was performed using 7-0 prolene in an end-to-side fashion. Antegrade cardioplegia was administered
into the graft. Appropriate hemostasis and flow were confirmed did require multiple repair sutures. The graft was then measured to length in order to accommodate a sequential graft to the RPDA coronary. This artery was dissected out in a similar
fashion and a small coronary arteriotomy was created enlarged with Walters scissors. The underbelly of the vein graft was then incised with 11 blade and a hsbv-ey-ffss anastomosis was created using 7-0 Prolene in a running fashion. Test dosing
antegrade demonstrated good flow into that RPDA vessel and appropriate hemostasis.. The graft was measured for length to the aorta and cut. A suitable site on the fourth obtuse marginal was chosen. We dissected and prepared the distal target in a
similar fashion. An end-to-side anastomosis was created with a 7-0 prolene. Antegrade cardioplegia was administered into the graft. Appropriate hemostasis and flow were confirmed. The graft was measured for length to the aorta and cut. I then
evaluated the diagonal vessel which was a poor target and so I elected not to perform this bypass. I then inspected the left atrial groove and found the largest OM which appeared to be the second OM and dissected this vessel out in a similar
fashion. Small coronary arteriotomy was created and the vein graft was beveled and used to perform a end-to-side anastomosis with 7-0 Prolene. A suitable target on the mid/distal left anterior descending was identified. We dissected and prepared
the distal target in a similar fashion. We retrieved the KLINE from the chest and created a pericardial opening while being cognizant of the phrenic nerve to facilitate the course of the mammary. The distal end of the mammary was prepped and beveled
to size. We verified orientation and length of the ALL and found brisk flow. An end-to-side anastomosis was created with a 7-0 prolene. We temporarily released the bulldog clamp on the mammary to inspect flow. Perfusion to the LAD territory was
visualized and hemostasis was confirmed. The bull clamp was replaced on the mammary. The heart was filled and the root was distended with antegrade cardioplegia to make final assessment of graft length and orientation. We created 3 aortotomies using
a #11 blade then a 4.0mm aortic punch. The proximal anastomoses were created in an end-to-side fashion using 6-0 prolene. At the the same time, we re-warmed to 36.5 degrees centigrade. The bulldog clamp was removed from the mammary. Temporary
bipolar ventricular pacing wires were placed on the base of the right ventricle. The patient was placed in a Trendelenburg position and flows on bypass were lowered. The aortic cross clamp was removed and flows were slowly brought back up. All
bypass grafts were inspected and were free from kinking or twisting. There was some welling of blood from behind the heart and as I inspected the distal grafts there is evidence of bleeding from the OM to the distal anastomosis. In order to
facilitate exposure and off-pump retractor was brought into the field and the heart was retracted downward. Two 7-0 Prolene sutures were used to repair this anastomosis with good effect. The distal and proximal anastomoses appeared hemostatic.
Once transesophageal echocardiography appeared satisfactory for de-airing, the flows were temporarily lowered for root vent removal. After verifying acceptable parameters, we initiated weaning from cardiopulmonary bypass. Once we were off
cardiopulmonary bypass, the venous cannula was clamped and removed. A test dose of protamine was administered and the patient was monitored for any adverse reaction before resuming protamine. Once half of the protamine dose was delivered, pump
suckers were turned off and the systolic blood pressure was lowered for aortic decannulation. The aortic cannula was removed and pursestrings were tied down. All cannulation sites were oversewn with a 4-0 prolene. The mammary bed was inspected and
hemostasis was confirmed. Once the mediastinum was hemostatic, 19Fr Geoffrey drain was placed in the left pleural cavity and two 24Fr Geoffrey drains were placed within the pericardium. The sternum was approximated with 4 #7 single and 3 #8 double
stainless steel wires. Fascia was approximated with #1 vicryl suture. The subcutaneous, dermis and epidermis were closed in layers in a running fashion. The skin wound was cleansed and dressed.
All instrument, sponge, and needle counts were confirmed to be correct x 2 at the end of the operation. The patient was transferred to the cardiac intensive care unit in critical but stable condition.
I, Dr. Luther Stewart, was present, scrubbed for, and performed all critical elements of this procedure.
Luther Stewart MD, MS
Cardiothoracic Surgeon
[facility]
This operative dictation was created using the [employer] dictation system. Please excuse any grammatical, typographical, or 'sound alike' errors
--- NOTE | 2023-10-17 16:58 | CON.INTV ---
Consultation
Consultation Request
Date/Time Consultation Requested: 10/17
Date/Time Consultation Performed: 10/17
Reason for Consultation: Critical care
Medical History
-
History of Present Illness:
History obtained from the chart, medical records. Patient currently intubated. 68-year-old male admitted 10/14/2023, presents to outpatient cardiology for new onset right bundle branch block. Abnormal echocardiogram and stress test were noted.
Patient referred to cardiac catheterization which revealed multivessel coronary disease, EF 59%. Patient underwent coronary bypass surgery 10/17/2023. Not required blood products, currently on low-dose norepinephrine. We are asked to help from
critical care standpoint 10/17/23
.
PMH: Bladder cancer with surgery and chemotherapy in the past, hypertension, hyperlipidemia, diabetes
Past Medical History
Past Medical History: None (See above)
Past Surgical History: None (See above)
Social History
Tobacco: Former Smoker ([id number], quit 2008)
Alcohol: None
Drug: None
Living: With Family
Employment: Retired ([employer])
Family History
Family History: Other (Family history of Hodgkin's lymphoma mother, brain hemorrhage father)
Allergies / Home Medications
Allergies
Allergy/AdvReac Type Severity Reaction Status Date / Time
No Known Drug Allergies Allergy Unknown Verified 10/14/23 08:43
Home Medications
Medication Instructions Recorded Confirmed Last Taken Type
aspirin 81 mg tablet 81 mg PO DAILY Blood Clot 10/14/23 10/14/23 10/13/23 18:00 History
Prevention/Tx
empagliflozin 10 mg tablet 10 mg PO DAILY Diabetes 10/14/23 10/14/23 10/13/23 08:00 History
fluticasone propionate 50 1 spray intranasal DAILY PRN dry 10/14/23 10/14/23 10/13/23 20:00 History
mcg/actuation nasal nose
spray,suspension
magnesium glycinate 100 mg tablet 400 mg PO DAILY Supplement 10/14/23 10/14/23 10/13/23 18:00 History
metformin 500 mg tablet,extended 1,500 mg PO QPM Diabetes 10/14/23 10/14/23 10/13/23 18:00 History
release 24 hr
metoprolol succinate 50 mg 50 mg PO DAILY Heart 10/14/23 10/14/23 10/13/23 18:00 History
tablet,extended release 24 hr Disease/Condition
nifedipine 60 mg tablet,extended 60 mg PO DAILY Heart 10/14/23 10/14/23 10/13/23 18:00 History
release 24 hr Disease/Condition
olmesartan 40 1 tab PO DAILY Heart 10/14/23 10/14/23 10/13/23 08:00 History
mg-hydrochlorothiazide 12.5 mg Disease/Condition
tablet
psyllium 1 packet PO DAILY Supplement 10/14/23 10/14/23 10/13/23 18:00 History
sildenafil 100 mg tablet 100 mg PO DAILY ED 10/14/23 10/14/23 Unknown History
simvastatin 20 mg tablet 20 mg PO HS High Cholesterol 10/14/23 10/14/23 10/13/23 18:00 History
Review of Systems
-
Unable to Obtain full review of systems at this time due to: Patient Intubation
Vitals / Labs / Diagnostic Testing
Vital Signs
Temp Pulse Resp BP Pulse Ox
97.4 F 64 20 125/85 95
10/17/23 08:00 10/17/23 07:21 10/17/23 08:00 10/17/23 06:16 10/17/23 08:00
Diagnostic Testing:
Physical Exam
-
HEENT: Normocephalic, Other (Right IJ, left upper extremity A-line, chest tube) and Other (Chest incision intact, right lower extremity bandage in place)
Cardiovascular: S1/S2, Regular Rhythm and Murmur (n)
Respiratory: Wheeze (n), Rales (n), Rhonchi (n) and Non-Labored Respirations
GI: Soft, Non Distended and Non Tender
Neurology: Other (Sedated)
General: Comfortable and Other (ET tube)
Assessment
-
68-year-old male with new onset right bundle branch block, abnormal stress test, found to have multivessel disease per cardiac catheterization, status post coronary bypass surgery 10/17/2023
s/p CABG x 5, 10/17/2023
Multivessel coronary disease
Normal EF
New onset right bundle branch block
Hypertension/hyperlipidemia
Fyy-lzanbzd-rwboahpva diabetes
70-miki-losb history of smoking
History of bladder cancer with multiple surgeries, chemotherapy in the past
Family history of lymphoma (mother)
Plan/recommendations
At this time, patient appears to be comfortable but critically ill postoperatively
Chest tube without airleak, minimal drainage
Postoperative EKG without acute findings
Awaiting post procedure chest x-ray
CT chest 10/14/2023 reviewed, normal-appearing parenchyma, mildly elevated left hemidiaphragm
Weaned down to 60%, ABG pending
Moving forward
Continue with management per CT surgery
Vent weaning protocol
Follow hemoglobin, electrolytes
Preoperative asymptomatic SVT noted. Follow rhythm. Beta-cory per cardiology
Presently on low-dose norepinephrine at 2 mcg
Follow blood sugars
Distant tobacco history noted, chest exam is clear
Reviewed with critical care nursing
We will follow
TCCT 31 min
[2023-10-17] MEDS: NSS 500 IV (17:00)
[2023-10-17] MEDS: ZINACEF 1500 MG IV ×2 (17:00)
[2023-10-17] MEDS: STERILE WATER FOR INJECTION 16 ML IV ×2 (17:00)
--- NOTE | 2023-10-17 17:00 | PTCARENOTE ---
patient received from cvor status post cabg x 4: usual lines. Intubated and sedated: Dr. Stewart here: precedex increased for sedation post cxr to keep patent sedate to -2 rass. Very sensitive to nitro to maintain sbp 90 to 110mmhg: switched to
cardene. NSR with rbbb rates 60's to 70's. Chest tubes x 3 (2 meds/left pleural) to pleur evacs-20cm wall suction. No air leak. See flowrecord for remaining assessments.Oral ETT #8 at 23cm at lip to vent: simv settings.
[2023-10-17 17:08] LABS: Glucose - Point of Care 146 mg/dl (70-99)
[2023-10-17 17:08] LABS: B.E. -1.8 mmol/L; HCO3 23.7 mmol/L (21-28); Ionized Calcium 1.12 mMOL/L (1.15-1.33); O2 Saturation % 98.6 % (94-98); PCO2 42 mmHg (35-48); PO2 95 mmHg (83-108); Potassium 4.3 mMOL/L (3.5-5.1); Sodium 137 mMOL/L (136-145); pH 7.36 (7.35-7.45)
[2023-10-17 17:15] LABS: Hematocrit 34.7 % (39.0-52.0); Hemoglobin 12.5 g/dL (13.0-18.0); Platelet Count 152 10^3/uL (130-400)
[2023-10-17 17:18] LABS: INR 1.52; PT 18.1 Sec (11.4-14.6)
[2023-10-17] MEDS: MORPHINE SULFATE 4 MG IV ×2 (17:20→17:43)
[2023-10-17 17:26] LABS: Blood Urea Nitrogen 27 mg/dl (9-20); Estimated Creatinine Clearance 82 ml/min; Glucose 146 mg/dl (70-99); Magnesium 2.7 mg/dl (1.6-2.3)
[2023-10-17] MEDS: CARDENE 200 IV (17:27)
[2023-10-17] MEDS: CALCIUM CHLORIDE 10% SYRINGE 50 ML IV (17:30)
[2023-10-17] MEDS: CALCIUM CHLORIDE 10% SYRINGE 50 MG IV (17:30)
[2023-10-17] MEDS: TYLENOL PO ×2 (17:31→20:25)
[2023-10-17] MEDS: ALBUMIN 5% 250 IV ×2 (17:33→18:15)
[2023-10-17] MEDS: VERSED 0.5 MG IV (17:40)
--- NOTE | 2023-10-17 18:00 | PTCARENOTE ---
Hemodynamics and all lab results/output reported to Kaela Weinstein PA-C/Dr. Stewart.
[2023-10-17 18:06] LABS: Glucose - Point of Care 145 mg/dl (70-99)
[2023-10-17] MEDS: FLEXERIL PO ×2 (18:23→22:27)
[2023-10-17] MEDS: NEURONTIN PO ×2 (18:23→22:27)
[2023-10-17] MEDS: NOVOLOG FLEXPEN SC ×2 (18:24)
[2023-10-17] MEDS: PACERONE PO (18:25)
[2023-10-17 18:30] LABS: Mixed Venous O2 Saturation 72.6 %
[2023-10-17] MEDS: LIPITOR PO (18:30)
[2023-10-17 19:10] LABS: Glucose - Point of Care 113 mg/dl (70-99)
[2023-10-17] MEDS: PRECEDEX 100 IV (19:37)
[2023-10-17 19:57] LABS: Glucose - Point of Care 101 mg/dl (70-99)
--- NOTE | 2023-10-17 20:00 | PTCARENOTE ---
Pt received from claude RN. Pt intubated s/p CVOR. RASS -1. CPOT 0. Pt able to follow commands. ROGERS. Bilateral upper/lower extremity strength 5/5. Pupils 3 mm and PERRLA. Pt SR on monitor. HR 60s. Temporary epicardial V-wire intact - pt received
with pacer box turned off. [place] @48 cm. Pt connected to HemoSphere via Left radial arterial line. BP 112/65. CVP 5. PAP 28/14. CO: 4.35. CI: 2.07. ETT #8, 24 cm @ R lip. See work-list for ventilator settings. POX 95%. Breath sounds diminished
anteriorly. Mediastinal CTx2 to -20 suction, no air-leak/tidaling/crepitus, and output within appropriate limits. Left pleural CT to -20 suction, no air-leak/tidaling/crepitus, and output within appropriate limits. Temperature sensing Lara catheter
CDI. Voiding yellow urine. Abdomen soft/nontender. Hypoactive BS present. Sternal incision approximated w/ surgical adhesive and open to air. Right leg JESUS bandage intact. Left radial a-line CDI, zeroed and flushed. Right IJ cordis CDI. Cardene and
Precedex infusing as ordered/per protocol. Glycemic protocol followed. Insulin infusing via left forearm PIV. See work-list for full assessment and nursing interventions.
[2023-10-17] MEDS: PEPCID 20 MG IV (20:25)
[2023-10-17] MEDS: SENOKOT-S PO (20:25)
[2023-10-17] MEDS: NSS (PRESERVATIVE FREE) 8 ML IV (20:25)
[2023-10-17 20:53] LABS: Glucose - Point of Care 111 mg/dl (70-99)
[2023-10-17 20:58] LABS: Hematocrit 34.6 % (39.0-52.0); Hemoglobin 12.6 g/dL (13.0-18.0); Platelet Count 154 10^3/uL (130-400)
[2023-10-17 21:54] LABS: Glucose - Point of Care 96 mg/dl (70-99)
--- NOTE | 2023-10-17 22:10 | PTCARENOTE ---
Pt placed on CPAP by respiratory therapist @2210. POX 96%. VSS.
[2023-10-17] MEDS: ASPIRIN 300 MG RECTAL (22:29)
[2023-10-17] MEDS: STERILE WATER FOR INJECTION 8.30000000000000071 ML IV (22:29)
[2023-10-17] MEDS: ZINACEF 750 MG IV (22:29)
[2023-10-17 22:52] LABS: B.E. -2.9 mmol/L; Ionized Calcium 1.18 mMOL/L (1.15-1.33); O2 Saturation % 98.7 % (94-98); PCO2 38 mmHg (35-48); PO2 90 mmHg (83-108); pH 7.37 (7.35-7.45)
--- NOTE | 2023-10-17 23:15 | PTCARENOTE ---
Blood gas drawn and sent. Order to extubate per CTPA Lucien Corbin. Pt extubated to 6 L NC by respiratory @2310. POX 96%. VSS.
[2023-10-18] VITALS (47 sets, daily range): BP systolic 79–143; BP diastolic 61–85; PULSE 86; O2SAT 97–99; BMI 29.2
[2023-10-18 00:13] LABS: Glucose - Point of Care 127 mg/dl (70-99)
--- NOTE | 2023-10-18 00:14 | PTCARENOTE ---
Pt reassessed. Pt AAOx4, ROGERS, and is following commands appropriately. SR on monitor. HR 70s. Temporary epicardial V-wire intact, VVI 30/10. [place] and HemoSphere maintained. CO: 5.2. CI: 2.5. SVR: 1072. PAP 29/11. L radial A-line CDI. BP 101/56. Pt
on 6 L NC. POX 94%. Mediastinal CT x2 and Left Pleural CT to -20 suction, no air-leak tidaling, or crepitus, and output within appropriate limits. Pt Lara catheter CDI. Pt voiding yellow urine. Glycemic protocol followed. Pt repositioned in bed.
Call gee within reach.
[2023-10-18] MEDS: TYLENOL PO ×3 (00:21→17:46)
[2023-10-18] MEDS: OFIRMEV 100 IV (01:10)
[2023-10-18 01:58] LABS: Glucose - Point of Care 101 mg/dl (70-99)
[2023-10-18 03:18] LABS: Hematocrit 33.2 % (39.0-52.0); Mean Corp Hgb Conc. 36.1 g/dL (33.0-37.0); Mean Corpuscular Hgb 30.2 pg (27.0-31.0); Mean Corpuscular Volume 83.6 fL (80.0-94.0); Mean Platelet Volume 9.6 fL (7.4-10.4); Platelet Count 171 10^3/uL (130-400); Red Blood Cell Count 3.97 10^6/uL (4.70-6.10); Red Cell Dist. Width 12.2 % (11.5-14.5)
[2023-10-18] MEDS: MORPHINE SULFATE 2 MG IV (03:23)
--- NOTE | 2023-10-18 03:30 | W.PN.CT ---
Today's Communication / Plan
-
Plan:
-No major issues overnight. Hemodynamically and neurologically intact
-Successfully extubated yesterday 10/17/23 @ 2310
-Off all drips but insulin per protocol
-Last CI 2.4, U/O since OR 1100 mL
-Monitor chest tube output: 2meds 160/200, L pl 06/17
-Cont. current meds (ASA, Amiodarone, Lopressor, Lipitor, Lasix; will add Plavix)
-D/C'd swan and a-line this AM @ 0430
-Renew insulin gtt today, D/C and transfer to telemetry phase tomorrow. Will consult diabetes eduction/management, A1C 7.3
-D/C tejeda catheter later in the day given hx of multiple bladder surgeries for bladder ca
-Maintain cordis
-Maintain temporary pacer wires (will cut before d/c home)
-Encourage use of IS
-Wean off of O2
-OOB into chair
-Ambulate
Assessment / Plan
-
Assessment:
-S/P Standard sternotomy with aortic and right atrial cannulation/CABG x 5 (In situ KLINE to LAD, Ao to RSVG to OM 2, Ao to RSVG to OM4, Ao to RSVG to RPDA seq to RPLB)/R EVH,
by Dr. Stewart, 10/17/23, pod#1
-Severe 3v CAD
-LVEF 55% per intraop SIMRAN
-Mild TR
-Mild AI
-Mild dilated aorta (4.2 cm)
-Mild scattered sessile atheroma @ distal aortic arch
-New preop RBBB
-Hypertension
-Hyperlipidemia
-T2DM (A1C 7.3)
-Class 1 obesity (BMI 30)
-Hyponatremia (134)
-Tobacco abuse, former smoker (Quit in 2008.� Smoked for roughly 30 years at his heaviest of 1 pack/day)
-Bladder Ca S/p Multiple surgeries, plus chemotherapy
-Acute postop blood loss/anemia (stable without transfusion)
-Acute postop atelectasis/pleural effusion
-Acute postop hypovolemia with subsequent hypervolemia
Discussed patient care with: Cardiology, Nursing, Respiratory Therapy, Pharmacy and Care Team
Subjective
Procedure
S/P Standard sternotomy with aortic and right atrial cannulation/CABG x 5 (In situ KLINE to LAD, Ao to RSVG to OM 2, Ao to RSVG to OM4, Ao to RSVG to RPDA seq to RPLB)/R EVH,
by Dr. Stewart, 10/17/23
-
Date of Service: October 18, 2023
Pt c/o incisional pain, otherwise feels well
Objective Data
-
Lab Results
10/18/23 03:08
PT 18.1 Sec (11.4-14.6) H 10/17/23 16:53
INR 1.52 10/17/23 16:53
APTT 30.0 Sec (23.4-35.0) 10/17/23 16:53
Vital Signs
Vital Signs
Temp Pulse Resp BP Pulse Ox
98 F 82 14 107/81 95
10/18/23 03:00 10/18/23 03:00 10/18/23 03:00 10/18/23 03:00 10/18/23 03:00
CT Intake/Output/Weight
10/17/23 10/17/23 10/18/23
06:59 18:59 06:59
Intake Total 554.0 / 853.2 299.2 / 853.2
Output Total 250 / 1180 930 / 1180
Balance 304.0 / -326.8 -630.8 / -326.8
SaO2: 94 (3L)
Physical Exam
-
General: Awake, Oriented and AOx3
Cardiovascular: Regular rate & rhythm, No Murmurs, No Rub and No Gallop
Respiratory: Decreased Breath Sounds (at bases, otherwise clear)
Sternum: Stable
Incision: Clean, Dry, Intact and Dressing Intact
Extremities: Other (+trace edema)
Data Reviewed
-
Lab Results: Results Reviewed
Medications: Active Meds Reviewed
Chest X-Ray: Report Reviewed and Image Reviewed
ECG: Report Reviewed and Image Reviewed
[2023-10-18 03:46] LABS: Blood Urea Nitrogen 32 mg/dl (9-20); Calcium 8.7 mg/dl (8.4-10.2); Carbon Dioxide 24 mmol/L (22-30); Chloride 107 mmol/L (98-107); Estimated Creatinine Clearance 93 ml/min; Glucose 102 mg/dl (70-99); Magnesium 2.4 mg/dl (1.6-2.3); Sodium 139 mmol/L (135-145); eGFR > 60.00
[2023-10-18 03:58] LABS: Glucose - Point of Care 85 mg/dl (70-99)
--- NOTE | 2023-10-18 04:07 | PTCARENOTE ---
Pt reassessed. VSS. Pt SR on monitor. HR 70-80s. Temporary epicardial V-wire intact. [place] and HemoSphere in place. Left radial arterial line maintained. BP stable. Pt on 3 L NC. POX 95-96%. Mediastinal CT x2 and left plueral CT to -20 suction, no
air-leak/tidaling/crepitus noted, and output within appropriate limits. All surgical sites stable. Glycemic protocol followed. Pt c/o pain - see OCT. Labs drawn and sent. EKG obtained.
--- NOTE | 2023-10-18 05:30 | PTCARENOTE ---
[place] and arterial line DC'd per order. HemoSphere disconnected from pt. VSS. Pt remains SR on monitor. HR 80s. BP 120/82. Pt on 3 L NC. POX 94%.
[2023-10-18] MEDS: ZINACEF 750 MG IV ×2 (05:42→13:30)
[2023-10-18] MEDS: STERILE WATER FOR INJECTION 8.30000000000000071 ML IV ×2 (05:42→13:30)
[2023-10-18 06:10] LABS: Glucose - Point of Care 108 mg/dl (70-99)
[2023-10-18] MEDS: ZOFRAN 4 MG IV (06:23)
--- NOTE | 2023-10-18 07:00 | PTCARENOTE ---
Bedside walking rounds report received. Patient seen on rounds oob in chair: 2l nasal canula: awake alert and oriented x 3. NSR on monitor with BBB (RBB has resolved). A bit hypotensive while in chair: asymptomatic with systolic BP in the mid 80's:
CT surgical rounds: plan: give 250ml 5% albumin, dc left pleural chest tube later this am, maintain tejeda for now. Temp epicardial V wire for backup rate 30/10 and sensing appropriately. Chest tubes x 3 (med A and B to 1 pleur evac -20cm and left
pleural ct to 1 pleur evac -20cm). See flow record for remaining assessments.
--- NOTE | 2023-10-18 07:42 | W.PN.ANS.POP ---
Anesthesia Post Operative
- Anesthesia Post Op Note
Vital Signs Stable-See Nursing Note: Yes
Airway Patent: Yes
Adequate Pain Control: Yes
Change in Mental Status: No
Current Postoperative Nausea & Vomiting: No
Anesthesia Complications: No
General Anesthetic Recall: No
Unplanned Admission: No
Post Op Hydration Adequate: Yes
[2023-10-18 07:51] LABS: Glucose - Point of Care 113 mg/dl (70-99)
--- NOTE | 2023-10-18 07:51 | W.PN.INTV ---
Today's Communication / Plan
Recommendations
Incentive spirometry, pain control
Follow blood sugars, remains on insulin drip
Continue postoperative care
Assessment
-
68-year-old male with new onset right bundle branch block, abnormal stress test, found to have multivessel disease per cardiac catheterization, status post coronary bypass surgery 10/17/2023
s/p CABG x 5, 10/17/2023
Multivessel coronary disease
Normal EF
New onset right bundle branch block
Hypertension/hyperlipidemia
Vnh-fnkfuwj-xuterxiaf diabetes
32-gxpt-ywfc history of smoking
History of bladder cancer with multiple surgeries, chemotherapy in the past
Family history of lymphoma (mother)
Plan/recommendations
At this time, patient appears to be comfortable sitting in chair
Chest tube without airleak, minimal drainage
Chest x-ray with minimal atelectasis at the base
CT chest 10/14/2023 reviewed, normal-appearing parenchyma, mildly elevated left hemidiaphragm
Hemoglobin stable
Moving forward
Continue with management per CT surgery
Follow hemoglobin, electrolytes
Preoperative asymptomatic SVT noted. Follow rhythm. Beta-cory per cardiology
Pressors weaned off
Follow blood sugars, remains on insulin drip. Elevated hemoglobin A1c noted
Distant tobacco history noted, chest exam is clear
Reviewed with critical care nursing
We will follow
Subjective Dataa
Subjective Data
Date of Service:
Date of Service: October 18, 2023
Subjective:
Extubated without difficulty. Currently sitting in chair. Examined earlier this morning. Mild incisional discomfort but denies shortness of breath, abdominal pain. Has mild incisional discomfort. Appears comfortable, conversant
Objective Data
Data Reviewed
Vital Signs / I&O / Oxygen:
Vital Signs
Temp Pulse Resp BP Pulse Ox
97.8 F 82 20 87/68 96
10/18/23 07:47 10/18/23 07:47 10/18/23 07:47 10/18/23 07:47 10/18/23 07:47
Intake and Output
10/17/23 10/18/23 10/19/23
06:59 06:59 06:59
Intake Total 480 / 480 904.0 / 904.0
Output Total 1410 / 1410
Balance 480 / 480 -506.0 / -506.0
SaO2 [CPAP/PSV] 96
SaO2 [SIMV] 94
SaO2 96
Nasal Cannula flow liters per 2
minute
Physical Exam
General: Comfortable and Other (IJ, A-line, chest tube)
HEENT: Normocephalic, Anicteric and Moist Mucous Membranes
Cardiovascular: S1-S2, Regular Rhythm, Murmur (n), Rub (n) and Peripheral Edema (n)
Respiratory: Wheeze (n), Crackles (n), Rhonchi (n), Chest Tube (No airleak) and Other (Decreased at base)
GI: Soft, Non Distended and Non Tender
Neurology: Awake, Alert and No Motor Deficits
Skin: Cyanosis (n), Jaundice (n) and Rash (n)
Labs/Micro/Reports
Lab Data
10/18/23 03:08
10/18/23 03:08
Laboratory Results
10/17/23 10/17/23
16:53 22:45
PT 18.1 H
INR 1.52
APTT 30.0
pH 7.36 7.37
pCO2 42 38
pO2 95 90
HCO3 23.7 22.0
O2 Delivery Level
[2023-10-18] MEDS: ALBUMIN 5% 250 IV (08:03)
[2023-10-18] MEDS: PEPCID 20 MG IV (08:04)
[2023-10-18] MEDS: NSS (PRESERVATIVE FREE) 8 ML IV (08:04)
[2023-10-18] MEDS: LIDOCAINE 4% PATCH 1 PATCH TOPICAL (08:05)
[2023-10-18] MEDS: SENOKOT-S 1 TABLET PO ×2 (08:06→19:47)
[2023-10-18] MEDS: LOW STRENGTH ASPIRIN 81 MG PO (08:06)
[2023-10-18] MEDS: TYLENOL 650 MG PO ×3 (08:06→19:47)
[2023-10-18] MEDS: MAGNESIUM OXIDE 500 MG PO ×2 (08:06→19:47)
[2023-10-18] MEDS: PLAVIX 75 MG PO (08:06)
[2023-10-18] MEDS: FLEXERIL 5 MG PO ×3 (08:06→21:11)
[2023-10-18] MEDS: METAMUCIL, KONSYL 1 PACKET PO (08:06)
[2023-10-18] MEDS: NEURONTIN 100 MG PO ×3 (08:07→21:11)
[2023-10-18] MEDS: PACERONE 200 MG PO ×4 (08:07→22:02)
[2023-10-18] MEDS: BACTROBAN 2% OINTMENT 1 APPLIC NASAL ×2 (08:07→19:46)
[2023-10-18] MEDS: NOVOLOG FLEXPEN 4 UNITS SC ×2 (08:08→17:47)
[2023-10-18] MEDS: KCL PO (08:21)
[2023-10-18] MEDS: LOPRESSOR PO (08:22)
--- NOTE | 2023-10-18 08:30 | W.PN.CD ---
Today's Communication / Plan
-
Hemodynamically stable postop.
Remains in sinus rhythm.
He had brief SVT preoperatively. Monitor postop.
Continued postop care as directed by CT surgery
Impression / Plan
-
Outpatient Student Advisor: Dr. Félix Astorga DO. [facility]
CAD:
-Coronary artery bypass grafting x 5 (In situ KLINE to LAD, Ao to RSVG to OM 2, Ao to RSVG to OM4, Ao to RSVG to RPDA seq to RPLB) 10/17/23
-In sinus rhythm
-Postop care directed by CT surgery.
SVT - short run 20 beats preop. Stable postop continue to monitor..
- BB
Hypertension. Stable monitor postop
Hyperlipidemia -resume statin.
Pvv-nflejbv-xtbikhaur diabetes mellitus type 2. Continue postop protocol
New RBBB. Noted preop
Tobacco abuse, former smoker (Quit in 2008.� Smoked for roughly 30 years at his heaviest of 1 pack/day)
Subjective: In chair. Pain controlled. Remains in sinus. No palpitations.
Cath 10/14/23:
CORONARY ANGIOGRAPHY
Dominance: Right
Left Main: Short without focal stenosis
LAD: There is a 90% proximal LAD stenosis with poststenotic dilatation.� This lesion is immediately proximal to the medium sized first diagonal branch takeoff.� There is a 60% LAD stenosis spanning the takeoff of the large second septal college sports assistant
and medium to large second diagonal branch.� There is a 70% mid to distal LAD stenosis and 80% apical LAD stenosis.� There is slightly decremental flow in the terminal LAD
Circumflex: 30% proximal circumflex stenosis with focal eccentric 50% mid circumflex stenosis.� OM1 is tiny.� OM 2 is medium to large with tandem 80% and 60% proximal stenoses.� OM 3 is a small to medium size vessel.� The circumflex terminates with
a large OM 4 which has 60% proximal stenosis and a single small posterolateral branch
RCA: 30% proximal RCA stenosis with focal 80% mid RCA stenosis.� There is 70% mid RPDA stenosis.� The RCA terminates with a medium sized RPL 1 and a small RPL 2.
CONCLUSIONS
1:� Systemic hypertension
2:� Normal left ventricular function with EF 59%
3.� Severe triple-vessel CAD as described
4.� Given the decremental flow into the apical LAD, we will keep the patient for inpatient CABG
5.� Although full revascularization may not be possible, complete revascularization would include bypass graft to LAD, major diagonal branch OM2, OM 4, RPDA, and RPL
Echocardiogram 09/29/23: Félix Astorga
EF 60-65%
MV: Trace MR
AV: Mild AI
TV: mild TR
PV: mild CO
LVSD: 30
LVDD: 50
PAP: 26
Physical Exam
Vital Signs/Labs
Vital Signs
Temp Pulse Resp BP Pulse Ox
97.8 F 82 20 87/68 96
10/18/23 07:47 10/18/23 07:47 10/18/23 07:47 10/18/23 07:47 10/18/23 07:47
10/17/23 10/18/23 10/19/23
06:59 06:59 06:59
Actual Weight 91.4 kg 92.2 kg
10/18/23 03:08
10/18/23 03:08
PT 18.1 Sec (11.4-14.6) H 10/17/23 16:53
INR 1.52 10/17/23 16:53
APTT 30.0 Sec (23.4-35.0) 10/17/23 16:53
Magnesium 2.4 mg/dl (1.6-2.3) H 10/18/23 03:08
Triglycerides 355 mg/dl (10-149) H 10/15/23 05:35
LDL Cholesterol, Calc 39 mg/dl 10/15/23 05:35
VLDL Cholesterol, Calc 71 mg/dl (0-30) H 10/15/23 05:35
HDL Cholesterol 39 mg/dl 10/15/23 05:35
Physical Exam
Constitutional: No acute distress
Cardiovascular: Rhythm & rate is regular
Respiratory: Other (Decreased breath sounds at left base. Chest tubes intact)
GI: Soft
Neuro/Psych: Alert, Oriented and AO x 3
Data Reviewed
-
Date of Service: October 18, 2023
Medical Decision Making: Reviewed Test Results
EKG: Report Reviewed by me
Medical Tests (PFT, Pathology etc): Report Reviewed by me
Labs: Labs Reviewed by me
[2023-10-18 09:49] LABS: Glucose - Point of Care 90 mg/dl (70-99)
--- NOTE | 2023-10-18 11:15 | PTCARENOTE ---
Patient assisted back to bed: room air: no dizziness or lightheadedness experienced this time. Left pleural chest tube sutures dc and left pleural chest tube dc per per order. Epicardial v wire insulated and disconnected: medtronic box in room and
easily accessible.
[2023-10-18] MEDS: LOPRESSOR 12.5 MG PO ×2 (11:27→19:47)
[2023-10-18] MEDS: NOVOLOG FLEXPEN SC (11:30)
--- NOTE | 2023-10-18 13:00 | PTCARENOTE ---
No acute changes: tejeda catheter dc: urinal provided. Patient placed back up into chair on room. NSR with BBB.
[2023-10-18 14:30] LABS: Glucose - Point of Care 133 mg/dl (70-99)
[2023-10-18 14:30] LABS: Glucose - Point of Care 252 mg/dl (70-99)
[2023-10-18] MEDS: ROXICODONE 5 MG PO (14:36)
--- NOTE | 2023-10-18 14:50 | CM ---
Chart reviewed. Patient is independent of ADLS, lives with his in a 1 STH, 2 ABE, 0 DME. Plan is for the patient to return home with CT Transitional RN. CM to follow
[2023-10-18 15:35] LABS: Glucose - Point of Care 214 mg/dl (70-99)
[2023-10-18 16:34] LABS: Glucose - Point of Care 203 mg/dl (70-99)
[2023-10-18 17:44] LABS: Glucose - Point of Care 163 mg/dl (70-99)
[2023-10-18] MEDS: NSS IV (17:46)
--- NOTE | 2023-10-18 18:00 | PTCARENOTE ---
Stood up at chair and void 250ml clear yellw urine without difficulty.
[2023-10-18] MEDS: LIPITOR 40 MG PO (18:03)
--- NOTE | 2023-10-18 20:00 | PTCARENOTE ---
assumed care of pt from previous RN. pt A&Ox4, resting in chair. present in room. NSR on tele-monitor. HR 80s. temp epicardial v-wires insulated. POX 93% on RA. CTx2 (mediastinalx2), to -20cm wall suction, draining serosanguineous drainage. no
c/o N/V. abd s/n, +BS. pt voiding clear, yellow urine in urinal. all surgical sites stable, CDI. R IJ cordis w/ KVO. insulin infusing per glycemic protocol. PIV intact. see worklist for complete nursing assessment, interventions, VS, and I&Os.
[2023-10-18 20:02] LABS: Glucose - Point of Care 162 mg/dl (70-99)
[2023-10-18 21:16] LABS: Glucose - Point of Care 115 mg/dl (70-99)
[2023-10-18 22:10] LABS: Glucose - Point of Care 117 mg/dl (70-99)
[2023-10-18] MEDS: NOVOLIN R INSULIN INFUSION 100 IV (23:13)
[2023-10-18 23:14] LABS: Glucose - Point of Care 119 mg/dl (70-99)
[2023-10-19] VITALS (23 sets, daily range): BP systolic 101–152; BP diastolic 58–88; PULSE 89; O2SAT 94; BMI 29.6
--- NOTE | 2023-10-19 | PTCARENOTE ---
assessment remains unchanged. SR on tele-monitor. HR 80s. POX 94-95% on 4 L NC. BP 121/70. no c/o pain at this time. CT drainage WNL.
[2023-10-19 00:07] LABS: Glucose - Point of Care 113 mg/dl (70-99)
[2023-10-19] MEDS: TYLENOL PO (00:16)
[2023-10-19 01:03] LABS: Hemoglobin 12.1 g/dL (13.0-18.0); Mean Corp Hgb Conc. 35.6 g/dL (33.0-37.0); Mean Corpuscular Hgb 30.4 pg (27.0-31.0); Mean Corpuscular Volume 85.4 fL (80.0-94.0); Mean Platelet Volume 9.4 fL (7.4-10.4); Platelet Count 173 10^3/uL (130-400); Red Blood Cell Count 3.98 10^6/uL (4.70-6.10); Red Cell Dist. Width 12.6 % (11.5-14.5); White Blood Cell Count 10.2 10^3/uL (4.8-10.8)
[2023-10-19 01:15] LABS: Blood Urea Nitrogen 40 mg/dl (9-20); Calcium 8.7 mg/dl (8.4-10.2); Carbon Dioxide 27 mmol/L (22-30); Chloride 105 mmol/L (98-107); Estimated Creatinine Clearance 82 ml/min; Glucose 108 mg/dl (70-99); Potassium 3.8 mmol/L (3.5-5.1); Sodium 135 mmol/L (135-145); eGFR > 60.00
[2023-10-19] MEDS: TYLENOL 650 MG PO ×6 (03:58→23:48)
[2023-10-19] MEDS: ROXICODONE 5 MG PO ×3 (03:58→19:55)
[2023-10-19 04:01] LABS: Glucose - Point of Care 119 mg/dl (70-99)
--- NOTE | 2023-10-19 05:25 | W.PN.CT ---
Addendum entered and electronically signed by JOSE ANTONIO Dey 10/19/23 15:37:
[facility] QUERY RESPONSE
Acute post op pulmonary insufficiency�
Original Note:
Today's Communication / Plan
-
Plan:
-No major issues overnight. Hemodynamically and neurologically intact
-Off all drips but insulin per protocol
-Will transition from insulin to oral diabetic meds/Tele phase once off insulin
-Consider d/c or remaining CTs: 2meds 105/270
-Noted to be tachycardic with ambulation, will increase Lopressor to 25 mg BID
-Cont. current meds (ASA, Plavix, Amiodarone, Lopressor, Lipitor, Lasix)
-Maintain cordis another day
-Maintain temporary pacer wires (will cut before d/c home)
-Encourage use of IS
-Wean off of O2
-OOB into chair
-Ambulate
Assessment / Plan
-
Assessment:
-S/P Standard sternotomy with aortic and right atrial cannulation/CABG x 5 (In situ KLINE to LAD, Ao to RSVG to OM 2, Ao to RSVG to OM4, Ao to RSVG to RPDA seq to RPLB)/R EVH,
by Dr. Stewart, 10/17/23, pod#2
-Severe 3v CAD
-LVEF 55% per intraop SIMRAN
-Mild TR
-Mild AI
-Mild dilated aorta (4.2 cm)
-Mild scattered sessile atheroma @ distal aortic arch
-New preop RBBB
-Hypertension
-Hyperlipidemia
-T2DM (A1C 7.3)
-Class 1 obesity (BMI 30)
-Hyponatremia (134)
-Tobacco abuse, former smoker (Quit in 2008.� Smoked for roughly 30 years at his heaviest of 1 pack/day)
-Bladder Ca S/p Multiple surgeries, plus chemotherapy
-Acute postop blood loss/anemia (stable without transfusion)
-Acute postop atelectasis/pleural effusion
-Acute postop hypovolemia with subsequent hypervolemia
Discussed patient care with: Cardiology, Nursing, Respiratory Therapy, Pharmacy and Care Team
Subjective
Procedure
S/P Standard sternotomy with aortic and right atrial cannulation/CABG x 5 (In situ KLINE to LAD, Ao to RSVG to OM 2, Ao to RSVG to OM4, Ao to RSVG to RPDA seq to RPLB)/R EVH,
by Dr. Stewart, 10/17/23
-
Date of Service: October 19, 2023
Pt c/o pleuritic chest pain, otherwise feels well. Appreciative and amazed about how well he's doing
Objective Data
-
Lab Results
10/19/23 00:49
10/19/23 00:49
PT 18.1 Sec (11.4-14.6) H 10/17/23 16:53
INR 1.52 10/17/23 16:53
APTT 30.0 Sec (23.4-35.0) 10/17/23 16:53
Vital Signs
Vital Signs
Temp Pulse Resp BP Pulse Ox
98.5 F 88 20 152/87 93
10/19/23 04:00 10/19/23 04:00 10/19/23 04:00 10/19/23 04:00 10/19/23 04:00
CT Intake/Output/Weight
10/18/23 10/18/23 10/19/23
06:59 18:59 06:59
Intake Total 350.0 / 904.0 1597.6 / 1733.2 135.6 / 1733.2
Output Total 1160 / 1410 690 / 1340 650 / 1340
Balance -810.0 / -506.0 907.6 / 393.2 -514.4 / 393.2
SaO2: 93 (4L)
Physical Exam
-
General: Awake, Oriented and AOx3
Cardiovascular: Regular rate & rhythm, No Murmurs, No Rub and No Gallop
Respiratory: Decreased Breath Sounds (at bases, with left basilar crackles)
Sternum: Stable
Incision: Clean, Dry, Intact and Dressing Intact
Extremities: Other (trace edema)
Data Reviewed
-
Lab Results: Results Reviewed
Medications: Active Meds Reviewed
Chest X-Ray: Report Reviewed and Image Reviewed
ECG: Report Reviewed and Image Reviewed
[2023-10-19] MEDS: LOPRESSOR 25 MG PO ×2 (05:42→20:21)
[2023-10-19 05:57] LABS: Glucose - Point of Care 90 mg/dl (70-99)
--- NOTE | 2023-10-19 07:25 | PTCARENOTE ---
Patient received from nightshift nurse. Patient is alert and oriented x4, pleasant. Denies pain/discomfort. NSR. HR 70s. V wires insulated. Audible heart tones. BP 102/70. Palpable pulses, weakly palpable dorsalis pedal pulses. +1 bilateral ankle
edema. RA. Oxygen saturation 95%. Upon auscultation, lung sounds diminished at the bases. MS CT x2 maintained to -20cm wall suction with small serosanguineous drainage. Abdomen round. +BS. Per patient, passing a little bit of gas. Voids in urinal.
Assist x1 OOB into chair. Sternal incision is approximated with surgical adhesive and open to air. R medial leg incision is approximated with surgical adhesive and open to air. R groin puncture site is approximated with surgical adhesive and open to
air. Will continue to monitor.
--- NOTE | 2023-10-19 07:49 | W.PN.INTV ---
Today's Communication / Plan
Recommendations
Pain control, incentive spirometry
Out of bed to chair, ambulate
Beta-cory therapy per CT surgery
Transition to diabetic meds
Once transferred to telemetry, we will sign off. Please call with questions
Assessment
-
68-year-old male with new onset right bundle branch block, abnormal stress test, found to have multivessel disease per cardiac catheterization, status post coronary bypass surgery 10/17/2023
s/p CABG x 5, 10/17/2023
Multivessel coronary disease
Normal EF
New onset right bundle branch block
Hypertension/hyperlipidemia
Wwl-vpcqvhg-yxvfintgy diabetes
98-zkry-vpwq history of smoking
History of bladder cancer with multiple surgeries, chemotherapy in the past
Family history of lymphoma (mother)
Plan/recommendations
At this time, patient appears to be comfortable sitting in chair
Chest tube without airleak, minimal drainage
Chest x-ray with minimal atelectasis at the base
CT chest 10/14/2023 reviewed, normal-appearing parenchyma, mildly elevated left hemidiaphragm
Hemoglobin stable
Mild tachycardia noted. Remains on beta-cory therapy
Currently remains on insulin drip
Moving forward
Continue with management per CT surgery
Follow hemoglobin, electrolytes
Preoperative asymptomatic SVT noted. Follow rhythm. Beta-cory per cardiology
Follow blood sugars, remains on insulin drip. Elevated hemoglobin A1c noted
Being transition to maintenance therapy later today
Distant tobacco history noted, chest exam is clear
Reviewed patient history of comorbidities
May benefit from outpatient sleep apnea evaluation, HST.
Pulmonary information left in chart if needed
Once transferred to telemetry, we will sign off. Please call with questions
Subjective Dataa
Subjective Data
Date of Service:
Date of Service: October 19, 2023
Subjective:
Patient is feeling well. Sitting in chair. Denies chest pain, chest tightness, nausea, abdominal pain. Appears to be in good spirits
Objective Data
Data Reviewed
Vital Signs / I&O / Oxygen:
Vital Signs
Temp Pulse Resp BP Pulse Ox
98.5 F 85 20 111/77 91
10/19/23 04:00 10/19/23 06:00 10/19/23 04:00 10/19/23 06:00 10/19/23 06:00
Intake and Output
10/18/23 10/19/23 10/20/23
06:59 06:59 06:59
Intake Total 904.0 / 904.0 1757.4 / 1757.4
Output Total 1410 / 1410 1360 / 1360
Balance -506.0 / -506.0 397.4 / 397.4
SaO2 [CPAP/PSV] 96
SaO2 [SIMV] 94
SaO2 91
Nasal Cannula flow liters per 4
minute
Physical Exam
General: Comfortable and Other (IJ, chest tube)
HEENT: Normocephalic, Anicteric and Moist Mucous Membranes
Cardiovascular: S1-S2, Regular Rhythm, Murmur (n), Rub (n) and Peripheral Edema (n)
Respiratory: Wheeze (n), Crackles (n), Rhonchi (n), Chest Tube (No airleak) and Other (Decreased at base)
GI: Soft, Non Distended and Non Tender
Neurology: Awake, Alert and No Motor Deficits
Skin: Cyanosis (n), Jaundice (n) and Rash (n)
Labs/Micro/Reports
Lab Data
10/19/23 00:49
10/19/23 00:49
Microbiology
10/17/23 11:10 Urine Urine Culture - Preliminary
Enterococcus species
[2023-10-19 07:52] LABS: Glucose - Point of Care 125 mg/dl (70-99)
[2023-10-19] MEDS: SENOKOT-S 1 TABLET PO ×2 (07:53→19:55)
[2023-10-19] MEDS: NEURONTIN 100 MG PO ×3 (07:53→21:14)
[2023-10-19] MEDS: METAMUCIL, KONSYL 1 PACKET PO (07:54)
[2023-10-19] MEDS: FLEXERIL 5 MG PO ×3 (07:54→21:14)
[2023-10-19] MEDS: PLAVIX 75 MG PO (07:54)
[2023-10-19] MEDS: NOVOLOG FLEXPEN 4 UNITS SC ×2 (07:54→12:40)
[2023-10-19] MEDS: LOW STRENGTH ASPIRIN 81 MG PO (07:54)
[2023-10-19] MEDS: PACERONE 200 MG PO ×3 (07:54→21:14)
[2023-10-19] MEDS: LIDOCAINE 4% PATCH TOPICAL ×2 (07:55→07:57)
[2023-10-19] MEDS: KCL 20 MEQ PO (07:55)
[2023-10-19] MEDS: BACTROBAN 2% OINTMENT 1 APPLIC NASAL ×2 (07:55→19:55)
[2023-10-19 08:27] LABS: Glucose - Point of Care 104 mg/dl (70-99)
--- NOTE | 2023-10-19 08:59 | W.PN.CD ---
Today's Communication / Plan
-
Encourage incentive spirometry/ambulation.
Icosapent ethyl 2g BID at the time of discharge.
Impression / Plan
-
Impression/Plan: 68 y/o male with HTN, HLD, NIDDM, prior tobacco abuse (quit 2008), hx of bladder CA s/p surgical resection/chemo and new diagnosis of multivessel CAD s/p CABG.
#CAD:
-New diagnosis.
-Coronary artery bypass grafting x 5 (KLINE to LAD, SVG to OM 2, SVG to OM4, Sequential SVG to RPDA to RPLB) with Dr. Stewart (10/17/23).
-Routine post operative management.
-Continue amiodarone, aspirin, atorvastatin, clopidogrel, metoprolol.
-Chest tube management per CT surgery.
-Encourage incentive spirometry.
#SVT
-Acute.
-Short run (20 beats preop).
-Stable postop, continue to monitor.
#Hypertension
-Chronic, stable.
-Restart home antihypertensives (nifedipine 60 mg daily, olmesartan/HCTZ) when BP is stable.
#Hyperlipidemia
-Chronic, stable.
-Total cholesterol = 149, LDL = 39, HDL = 39, Triglycerides = 355.
-Simvastatin changed to rosuvastatin.
-LDL is controlled, but triglycerides are uncontrolled. Start icosapent ethyl 2g BID at the time of discharge.
#Jop-ludcthd-ycetjrimf diabetes mellitus
-Chronic, stable.
-Continue postop protocol.
-Restart antihyperglycemic agents (metformin, empagliflozin).
#RBBB
-Noted preop.
-Stable.
#Tobacco abuse
-Quit in 2008.� Smoked for roughly 30 years at his heaviest of 1 pack/day).
Outpatient Jewel Stringer: Dr. Félix Astorga DO. [facility]
Subjective/Interval History:
Weight is up 2.1 kg from presurgical weight.
Chest tubes discontinued.
Oxygen weaned.
DATA:
Cath 10/14/23:
CORONARY ANGIOGRAPHY
Dominance: Right
Left Main: Short without focal stenosis
LAD: There is a 90% proximal LAD stenosis with poststenotic dilatation.� This lesion is immediately proximal to the medium sized first diagonal branch takeoff.� There is a 60% LAD stenosis spanning the takeoff of the large second septal plastics bench mechanic
and medium to large second diagonal branch.� There is a 70% mid to distal LAD stenosis and 80% apical LAD stenosis.� There is slightly decremental flow in the terminal LAD
Circumflex: 30% proximal circumflex stenosis with focal eccentric 50% mid circumflex stenosis.� OM1 is tiny.� OM 2 is medium to large with tandem 80% and 60% proximal stenoses.� OM 3 is a small to medium size vessel.� The circumflex terminates with
a large OM 4 which has 60% proximal stenosis and a single small posterolateral branch
RCA: 30% proximal RCA stenosis with focal 80% mid RCA stenosis.� There is 70% mid RPDA stenosis.� The RCA terminates with a medium sized RPL 1 and a small RPL 2.
Intraoperative SIMRAN, 10/17/2023:
CONCLUSIONS
�Overall LVEF is approximately 55% with no RWMA.
�Moderate concentric left ventricular hypertrophy.
�Stage I Diastolic dysfunction.
�Mildly dilated left atrium.
�Trace mitral regurgitation.
�Mild tricuspid regurgitation.
�Estimated pulmonary artery systolic pressure of 45-50 mmHg.
�Trace pulmonic insufficiency.
�Mild aortic insufficiency.
�Mid ascending aorta is dilated measuring 4.2 cm at the level of the RPA.
�Mild scattered sessile atheroma seen in the distal aortic arch.
Echocardiogram 09/29/23: Félix Astorga
EF 60-65%
MV: Trace MR
AV: Mild AI
TV: mild TR
PV: mild [place]
LVSD: 30
LVDD: 50
PAP: 26
Physical Exam
Vital Signs/Labs
Vital Signs
Temp Pulse Resp BP Pulse Ox
36.9 C 85 20 111/77 91
10/19/23 04:00 10/19/23 06:00 10/19/23 04:00 10/19/23 06:00 10/19/23 06:00
10/17/23 10/18/23 10/19/23
11:59 11:59 11:59
Actual Weight 91.4 kg 92.2 kg 93.5 kg
10/19/23 00:49
10/19/23 00:49
PT 18.1 Sec (11.4-14.6) H 10/17/23 16:53
INR 1.52 10/17/23 16:53
APTT 30.0 Sec (23.4-35.0) 10/17/23 16:53
Magnesium 2.4 mg/dl (1.6-2.3) H 10/18/23 03:08
Triglycerides 355 mg/dl (10-149) H 10/15/23 05:35
LDL Cholesterol, Calc 39 mg/dl 10/15/23 05:35
VLDL Cholesterol, Calc 71 mg/dl (0-30) H 10/15/23 05:35
HDL Cholesterol 39 mg/dl 10/15/23 05:35
Physical Exam
Constitutional: No acute distress and Comfortable
EENT: Anicteric and Moist mucous membranes
Cardiovascular: Rhythm & rate is regular, Pedal edema is absent, JVD pressure is normal, S1S2 is normal and Murmur/rub/gallop absent
Respiratory: Respiratory effort normal, Lungs clear to auscul., Wheeze Absent, Crackles Absent and Rhonchi Absent
GI: Soft, Distention absent, Flat, Non tender, Normal bowel sounds and Distention present
Neuro/Psych: AO x 3
Data Reviewed
-
Date of Service: October 19, 2023
Medical Decision Making: Reviewed Test Results, Independent Historian Assessment and Test Interpretation
EKG: Tracing Personally Visualized and interpreted and Report Reviewed by me
Echo: Tracing Personally Visualized and interpreted and Report Reviewed by me
X-Ray/CT/US/MRI/NUC/PET: Image Personally Visualized and interpreted and Report Reviewed by me
Medical Tests (PFT, Pathology etc): Image Personally Visualized and interpreted and Report Reviewed by me
Labs: Labs Reviewed by me
Old Records: Reviewed
[2023-10-19 10:02] LABS: Glucose - Point of Care 183 mg/dl (70-99)
--- NOTE | 2023-10-19 10:51 | PTCARENOTE ---
MS CTx2 discontinued per order and per protocol. Patient tolerated. New dressing applied. Will continue to monitor.
[2023-10-19 12:12] LABS: Glucose - Point of Care 96 mg/dl (70-99)
--- NOTE | 2023-10-19 12:16 | PTCARENOTE ---
Vital signs stable. NSR. HR 80s. V wires insulated. BP 129/78. RA. Oxygen saturation 94%. Patient c/o 5/10 sternal incision pain, administered PRN Roxicodone and scheduled Tylenol. Patient ambulated in hallway with RN and - tolerated very well.
Will continue to monitor.
--- NOTE | 2023-10-19 13:00 | PN.DE.MGMTRT ---
Insulin Management
- -
10/19/2023 Diabetes Management Consult
Patient admitted 10/14 POD 2 CABG x 5. PMH bladder CA with chemo, HTN, HLD, type 2 diabetes approx 2 years. Prior to admission was taking Jardiance 10 mg daily with metformin 1,500 at dinner; he was not testing his glucose at home. A1C 7.3%.
cr.9, egfr >60.
Patient currently on glycemic protocol, requiring up to 8 units of insulin per hour. Will continue until after dinner. Will increase Jardiance to 25 mg, first dose now, and resume metformin but 1000 mg BID. Patient does not have a glucose
monitor, will provide and instruct in AM
Diabetes History
- -
Type of Diabetes: 2
Pre-Admission Diabetes Regimen
10/19/23
00:49
Creatinine 0.9
Lab Results
Hemoglobin A1c 7.3 % (4.0-5.6) H 10/15/23 05:35
Insulin Pump Settings
IP Diabetes Regimen
10/18/23 10/18/23 10/18/23
11:56 14:24 15:34
Glucose
POC Glucose 133 H 252 H 214 H
10/18/23 10/18/23 10/18/23
16:31 17:43 19:53
Glucose
POC Glucose 203 H 163 H 162 H
10/18/23 10/18/23 10/18/23
21:15 22:08 23:12
Glucose
POC Glucose 115 H 117 H 119 H
10/19/23 10/19/23 10/19/23
00:06 00:49 01:56
Glucose 108 H
POC Glucose 113 H 104 H
10/19/23 10/19/23 10/19/23
03:59 05:55 07:51
Glucose
POC Glucose 119 H 90 125 H
10/19/23 10/19/23
10:00 12:11
Glucose
POC Glucose 183 H 96
Meal type: Breakfast
Amount consumed: 100%
Patient Education
[2023-10-19] MEDS: JARDIANCE 25 MG PO (14:00)
[2023-10-19 14:11] LABS: Glucose - Point of Care 117 mg/dl (70-99)
--- NOTE | 2023-10-19 15:11 | PN.CDI ---
CDI
- -
CDI:
Physician Documentation Request
Admit Date: 10/17/23 06:00
Dear Doctor Pat,
Clinical Indicators:
Patient admitted with 3v CAD; s/p CABG x 5 10/17.
10/18 (20:00) RN note, 'POX 93% on RA.'
10/19 (00:00) RN note, 'POX 94-95% on 4 L NC'
02 Requirements:
10/18/23
08:00 10/18/23
11:40 10/18/23
15:41
Oxygen Mode of Delivery Room air
Nasal Cannula flow liters per minute 2 2
10/18/23
20:00 10/18/23
22:00 10/19/23
05:00
Oxygen Mode of Delivery Room air
Nasal Cannula flow liters per minute 4 4
Please clarify which of the following accurately represents the patient's respiratory status following surgery:
Acute post op pulmonary insufficiency
Hypoxia only
Other
Additional information for Pulmonary Insufficiency:
Consider when patients require longwall foreman oxygen therapy postoperatively
Weaned off oxygen initially then requiring supplemental oxygen
No other definitive diagnosis to support the need for oxygen (COPD exac, CHF etc.)
Unable to wean from vent
When criteria for respiratory failure not present
May extend stay or require additional resources; may need home O2
Use of terms such as suspected, likely, concern for, or probable (associated with a specific diagnosis that is being evaluated, monitored, or treated as if it exists) are acceptable and can be coded in the inpatient setting, when documented at the
time of discharge.
Thank you,
KIMBER Carrington RN
CDI Specialist
available via tiger text
Please use your independent medical judgment in providing your response.
[2023-10-19] MEDS: PROTONIX 40 MG PO (15:39)
[2023-10-19 15:45] LABS: Glucose - Point of Care 144 mg/dl (70-99)
--- NOTE | 2023-10-19 16:19 | PTCARENOTE ---
Vital signs stable. NSR. HR 90s. HR 100s with activity. BP 117/77. RA. Oxygen saturation 96%. Ambulated to the BR with standby assist to void in the urinal and get washed up. Will continue to monitor.
[2023-10-19] MEDS: NSS 500 IV (17:17)
[2023-10-19] MEDS: GLUCOPHAGE 1000 MG PO (17:17)
[2023-10-19] MEDS: LIPITOR 40 MG PO (17:17)
[2023-10-19 17:50] LABS: Glucose - Point of Care 117 mg/dl (70-99)
[2023-10-19 19:16] LABS: Glucose - Point of Care 178 mg/dl (70-99)
--- NOTE | 2023-10-19 20:00 | PTCARENOTE ---
assumed care of pt from previous RN. pt A&Ox4, resting in chair for assessment. R IJ cordis w/ KVO. insulin infusing per glycemic protocol. SR-ST on tele-monitor. HR 90s-105s. temp epicardial v-wires insulated. palpable peripheral pulses. +1 pitting
edema in b/l ankles noted. POX 94-97% on RA. lungs clear on auscultation. no c/o N/V. abd s/n, +BS. pt reports passing gas. pt voiding clear, yellow urine in urinal. PIV intact. all surgical sites stable, CDI. see worklist for complete nursing
assessment, interventions, VS, and I&Os.
[2023-10-19 20:03] LABS: Glucose - Point of Care 165 mg/dl (70-99)
--- NOTE | 2023-10-19 21:15 | PTCARENOTE ---
glycemic protocol stopped at 2114 per CVPA. BG 100 at this time. will re-check BG at 0000.
[2023-10-19 21:19] LABS: Glucose - Point of Care 100 mg/dl (70-99)
[2023-10-19 23:49] LABS: Glucose - Point of Care 105 mg/dl (70-99)
[2023-10-20] VITALS (11 sets, daily range): BP systolic 107–149; BP diastolic 73–93; PULSE 96; O2SAT 95–97
--- NOTE | 2023-10-20 | PTCARENOTE ---
assessment remains unchanged. SR on tele-monitor. HR 80s. POX 86-87% on RA. pt placed on 2 L NC. POX 97%. BP 117/75. eros'd tylenol for pain management. BG 105.
[2023-10-20] MEDS: ROXICODONE 5 MG PO ×2 (03:58→16:01)
[2023-10-20] MEDS: TYLENOL 650 MG PO ×2 (03:58→16:02)
--- NOTE | 2023-10-20 04:00 | PTCARENOTE ---
assessment remains unchanged. NSR on tele-monitor. HR 80s. BP 113/73. POX 94% on 1 L NC. AM labs collected and sent.
[2023-10-20 04:17] LABS: Hematocrit 32.3 % (39.0-52.0); Hemoglobin 11.6 g/dL (13.0-18.0); Mean Corp Hgb Conc. 35.9 g/dL (33.0-37.0); Mean Corpuscular Hgb 30.5 pg (27.0-31.0); Mean Platelet Volume 9.6 fL (7.4-10.4); Platelet Count 162 10^3/uL (130-400); Red Cell Dist. Width 12.5 % (11.5-14.5); White Blood Cell Count 8.2 10^3/uL (4.8-10.8)
[2023-10-20 04:34] LABS: Blood Urea Nitrogen 34 mg/dl (9-20); Calcium 8.4 mg/dl (8.4-10.2); Carbon Dioxide 27 mmol/L (22-30); Chloride 102 mmol/L (98-107); Estimated Creatinine Clearance 93 ml/min; Glucose 104 mg/dl (70-99); Potassium 4.2 mmol/L (3.5-5.1); Sodium 135 mmol/L (135-145); eGFR > 60.00
--- NOTE | 2023-10-20 05:11 | W.PN.CT ---
Today's Communication / Plan
-
-pod #3
-doing well, no issues overnight, ambulated in hallways without difficulty
-very brief SVT (about 10 beats) overnight, asymptomatic
-no CTs
-pw insulated
-appreciate DM input - restarted on Metformin and Jardiance (increased dose)
-current meds (ASA, Plavix, Lipitor, Lopressor 25 bid, Amio, Jardiance, Metformin, Protonix)
-encourage IS (1500 so far), continue to ambulate
Assessment / Plan
-
Assessment:
-S/P Standard sternotomy with aortic and right atrial cannulation/CABG x 5 (In situ KLINE to LAD, Ao to RSVG to OM 2, Ao to RSVG to OM4, Ao to RSVG to RPDA seq to RPLB)/R EVH,
by Dr. Stewart, 10/17/23, pod#3
-Severe 3v CAD
-LVEF 55% per intraop SIMRAN
-Mild TR
-Mild AI
-Mild dilated aorta (4.2 cm)
-Mild scattered sessile atheroma @ distal aortic arch
-New preop RBBB
-SVT preop (20 beats)
-Hypertension
-Hyperlipidemia
-T2DM (A1C 7.3)
-Class 1 obesity (BMI 30)
-Hyponatremia (134)
-Tobacco abuse, former smoker (Quit in 2008.� Smoked for roughly 30 years at his heaviest of 1 pack/day)
-Bladder Ca S/p Multiple surgeries, plus chemotherapy
-Acute postop blood loss/anemia (stable without transfusion)
-Acute postop atelectasis/pleural effusion
-Acute postop pulmonary insufficiency- improved
-Acute postop hypovolemia with subsequent hypervolemia
-Brief SVT postop (10 beats) on 10/20
Discussed patient care with: Nursing and Care Team
Subjective
Procedure
S/P Standard sternotomy with aortic and right atrial cannulation/CABG x 5 (In situ KLINE to LAD, Ao to RSVG to OM 2, Ao to RSVG to OM4, Ao to RSVG to RPDA seq to RPLB)/R EVH,
by Dr. Stewart, 10/17/23
-
Date of Service: October 20, 2023
Objective Data
-
Lab Results
10/19/23 00:49
PT 18.1 Sec (11.4-14.6) H 10/17/23 16:53
INR 1.52 10/17/23 16:53
APTT 30.0 Sec (23.4-35.0) 10/17/23 16:53
Vital Signs
Vital Signs
Temp Pulse Resp BP Pulse Ox
98.3 F 83 20 117/75 97
10/20/23 00:00 10/20/23 00:00 10/20/23 00:00 10/19/23 23:45 10/20/23 00:00
CT Intake/Output/Weight
10/19/23 10/19/23 10/20/23
06:59 18:59 06:59
Intake Total 159.8 / 1768.1 1364.4 / 1438.4 74 / 1438.4
Output Total 670 / 1360 655 / 1055 400 / 1055
Balance -510.2 / 408.1 709.4 / 383.4 -326 / 383.4
SaO2: 97
Physical Exam
-
General: Awake and AOx3
Cardiovascular: Regular rate & rhythm, No Murmurs and Rub
Respiratory: Rales (few crackles at bases, no wheeze b/l) and Decreased Breath Sounds
Sternum: Stable
Incision: Clean, Dry and Intact
Extremities: No Edema (difficult to feel DPs)
Data Reviewed
-
Lab Results: Results Reviewed
Medications: Active Meds Reviewed
Chest X-Ray: Report Reviewed and Image Reviewed
ECG: Report Reviewed and Image Reviewed
--- NOTE | 2023-10-20 07:36 | W.PN.CD ---
Today's Communication / Plan
-
Continue routine post operative management.
Ambulate.
Discharge planning.
Impression / Plan
-
Impression/Plan: 68 y/o male with HTN, HLD, NIDDM, prior tobacco abuse (quit 2008), hx of bladder CA s/p surgical resection/chemo and new diagnosis of multivessel CAD s/p CABG.
#CAD:
-New diagnosis.
-Coronary artery bypass grafting x 5 (KLINE to LAD, SVG to OM 2, SVG to OM4, Sequential SVG to RPDA to RPLB) with Dr. Stewart (10/17/23).
-Routine post operative management.
-Continue amiodarone, aspirin, atorvastatin, clopidogrel, metoprolol.
-Chest tube management per CT surgery.
-Encourage incentive spirometry.
#SVT
-Acute.
-Short run (20 beats preop).
-Stable postop, continue to monitor.
#Hypertension
-Chronic, stable.
-Restart home antihypertensives (nifedipine 60 mg daily, olmesartan/HCTZ) when BP is stable.
#Hyperlipidemia
-Chronic, stable.
-Total cholesterol = 149, LDL = 39, HDL = 39, Triglycerides = 355.
-Simvastatin changed to rosuvastatin.
-LDL is controlled, but triglycerides are uncontrolled. Start icosapent ethyl 2g BID at the time of discharge.
#Pad-ovodiex-mgwaauuso diabetes mellitus
-Chronic, stable.
-Continue postop protocol.
-Restart antihyperglycemic agents (metformin, empagliflozin).
#RBBB
-Noted preop.
-Stable.
#Tobacco abuse
-Quit in 2008.� Smoked for roughly 30 years at his heaviest of 1 pack/day).
Outpatient Salvage Engineer: Dr. Félix Astorga DO. [facility]
Subjective/Interval History:
No acute events.
Feeling well.
DATA:
Cath 10/14/23:
CORONARY ANGIOGRAPHY
Dominance: Right
Left Main: Short without focal stenosis
LAD: There is a 90% proximal LAD stenosis with poststenotic dilatation.� This lesion is immediately proximal to the medium sized first diagonal branch takeoff.� There is a 60% LAD stenosis spanning the takeoff of the large second septal yarn polishing machine operator
and medium to large second diagonal branch.� There is a 70% mid to distal LAD stenosis and 80% apical LAD stenosis.� There is slightly decremental flow in the terminal LAD
Circumflex: 30% proximal circumflex stenosis with focal eccentric 50% mid circumflex stenosis.� OM1 is tiny.� OM 2 is medium to large with tandem 80% and 60% proximal stenoses.� OM 3 is a small to medium size vessel.� The circumflex terminates with
a large OM 4 which has 60% proximal stenosis and a single small posterolateral branch
RCA: 30% proximal RCA stenosis with focal 80% mid RCA stenosis.� There is 70% mid RPDA stenosis.� The RCA terminates with a medium sized RPL 1 and a small RPL 2.
Intraoperative SIMRAN, 10/17/2023:
CONCLUSIONS
�Overall LVEF is approximately 55% with no RWMA.
�Moderate concentric left ventricular hypertrophy.
�Stage I Diastolic dysfunction.
�Mildly dilated left atrium.
�Trace mitral regurgitation.
�Mild tricuspid regurgitation.
�Estimated pulmonary artery systolic pressure of 45-50 mmHg.
�Trace pulmonic insufficiency.
�Mild aortic insufficiency.
�Mid ascending aorta is dilated measuring 4.2 cm at the level of the RPA.
�Mild scattered sessile atheroma seen in the distal aortic arch.
Echocardiogram 09/29/23: Félix Astorga
EF 60-65%
MV: Trace MR
AV: Mild AI
TV: mild TR
PV: mild VT
LVSD: 30
LVDD: 50
PAP: 26
Physical Exam
Vital Signs/Labs
Vital Signs
Temp Pulse Resp BP Pulse Ox
36.8 C 84 18 113/73 95
10/20/23 04:00 10/20/23 07:00 10/20/23 04:00 10/20/23 03:47 10/20/23 06:00
10/18/23 10/19/23 10/20/23
11:59 11:59 11:59
Actual Weight 92.2 kg 93.5 kg 94.7 kg
10/20/23 03:53
10/20/23 03:53
PT 18.1 Sec (11.4-14.6) H 10/17/23 16:53
INR 1.52 10/17/23 16:53
APTT 30.0 Sec (23.4-35.0) 10/17/23 16:53
Magnesium 2.4 mg/dl (1.6-2.3) H 10/18/23 03:08
Triglycerides 355 mg/dl (10-149) H 10/15/23 05:35
LDL Cholesterol, Calc 39 mg/dl 10/15/23 05:35
VLDL Cholesterol, Calc 71 mg/dl (0-30) H 10/15/23 05:35
HDL Cholesterol 39 mg/dl 10/15/23 05:35
Physical Exam
Constitutional: No acute distress and Comfortable
EENT: Anicteric and Moist mucous membranes
Cardiovascular: Rhythm & rate is regular, Pedal edema is absent, JVD pressure is normal, S1S2 is normal and Murmur/rub/gallop absent
Respiratory: Respiratory effort normal, Lungs clear to auscul., Wheeze Absent, Crackles Absent and Rhonchi Absent
GI: Soft, Distention absent, Flat, Non tender and Normal bowel sounds
Neuro/Psych: AO x 3
Data Reviewed
-
Date of Service: October 20, 2023
Medical Decision Making: Reviewed Test Results, Independent Historian Assessment and Test Interpretation
EKG: Tracing Personally Visualized and interpreted and Report Reviewed by me
Echo: Tracing Personally Visualized and interpreted and Report Reviewed by me
X-Ray/CT/US/MRI/NUC/PET: Image Personally Visualized and interpreted and Report Reviewed by me
Medical Tests (PFT, Pathology etc): Image Personally Visualized and interpreted and Report Reviewed by me
Labs: Labs Reviewed by me
Old Records: Reviewed
[2023-10-20 07:48] LABS: Glucose - Point of Care 102 mg/dl (70-99)
--- NOTE | 2023-10-20 07:53 | PTCARENOTE ---
Patient received from nightshift nurse. Patient is alert and oriented x4, pleasant. Denies pain/discomfort. NSR. HR 80s-90s. V wires insulated. Audible heart tones. BP 118/80. Palpable pulses, weakly palpable dorsalis pedal pulses. +1 bilateral
ankle edema. RA. Oxygen saturation 94%. Upon auscultation, lung sounds diminished at the bases. Abdomen round. +BS. Per patient, passing a little bit of gas. Voids in urinal. Ambulates independently in room, when disconnected. Sternal incision is
approximated with surgical adhesive and open to air. R medial leg incision is approximated with surgical adhesive and open to air. R groin puncture site is approximated with surgical adhesive and open to air. Will continue to monitor.
--- NOTE | 2023-10-20 08:19 | PN.DE.MGMTRT ---
Insulin Management
- -
10/19/2023 Diabetes Management Consult
Patient admitted 10/14 POD 2 CABG x 5. PMH bladder CA with chemo, HTN, HLD, type 2 diabetes approx 2 years. Prior to admission was taking Jardiance 10 mg daily with metformin 1,500 at dinner; he was not testing his glucose at home. A1C 7.3%.
cr.9, egfr >60.
Patient currently on glycemic protocol, requiring up to 8 units of insulin per hour. Will continue until after dinner. Will increase Jardiance to 25 mg, first dose now, and resume metformin but 1000 mg BID. Patient does not have a glucose
monitor, will provide and instruct in AM
10/20/2023 Diabetes Management Follow up
POD 3 s/p CABG x5. Doing well. Resumed metformin but at dose 1000 mg BID with breakfast and dinner. Increased Jardiance to 25 mg daily, first dose yester ~ 2pm. HS glucose 100, 3AM glucose 104, fasting glucose 102 this AM. Will make no change
to current regimen.
Diabetes History
- -
Type of Diabetes: 2
Pre-Admission Diabetes Regimen
10/20/23
03:53
Creatinine 0.8
Lab Results
Hemoglobin A1c 7.3 % (4.0-5.6) H 10/15/23 05:35
Insulin Pump Settings
IP Diabetes Regimen
10/19/23 10/19/23 10/19/23
01:56 10:00 12:11
Glucose
POC Glucose 104 H 183 H 96
10/19/23 10/19/23 10/19/23
14:07 15:44 17:49
Glucose
POC Glucose 117 H 144 H 117 H
10/19/23 10/19/23 10/19/23
19:14 20:01 21:17
Glucose
POC Glucose 178 H 165 H 100 H
10/19/23 10/20/23 10/20/23
23:46 03:53 07:47
Glucose 104 H
POC Glucose 105 H 102 H
Meal type: Lunch
Amount consumed: 100%
Patient Education
[2023-10-20] MEDS: NEURONTIN 100 MG PO (08:51)
[2023-10-20] MEDS: GLUCOPHAGE 1000 MG PO (08:51)
[2023-10-20] MEDS: METAMUCIL, KONSYL 1 PACKET PO (08:51)
[2023-10-20] MEDS: PROTONIX 40 MG PO (08:51)
[2023-10-20] MEDS: LOW STRENGTH ASPIRIN 81 MG PO (08:51)
[2023-10-20] MEDS: LOPRESSOR 25 MG PO (08:51)
[2023-10-20] MEDS: SENOKOT-S 1 TABLET PO (08:51)
[2023-10-20] MEDS: JARDIANCE 25 MG PO (08:51)
[2023-10-20] MEDS: PACERONE 200 MG PO (08:51)
[2023-10-20] MEDS: PLAVIX 75 MG PO (08:51)
[2023-10-20] MEDS: KCL 20 MEQ PO (08:52)
[2023-10-20] MEDS: BACTROBAN 2% OINTMENT 1 APPLIC NASAL (08:52)
[2023-10-20] MEDS: FLEXERIL 5 MG PO (08:56)
[2023-10-20] MEDS: LIDOCAINE 4% PATCH TOPICAL (09:02)
--- NOTE | 2023-10-20 09:38 | W.DCSUMMARY ---
Discharge Summary
Discharge Data
Date of Admission: 10/17/23
Date of Discharge: 10/20/23
Total time spent discharging patient (in min): 35
-
Pending Results: No
Hospital Course
Primary care physician:
Dr. Sangita Rogers
Outpatient instructional technology coach:
Dr. Félix Astorga
Inpatient consultants:
CBC, supervisor ticket sales
Procedures:
1. Coronary artery bypass grafting x 5�
Primary Diagnosis:
1. Multivessel Coronary artery disease
Secondary Diagnoses:
1. Non- insulin dependent diabetes
2.� History of multiple bladder cancer surgeries and chemotherapy
3.� Abnormal stress test regional wall motion abnormality
4.� Hypertension
5.� Hyperlipidemia
6.� Former tobacco abuse with 1 pack a day for approximately 30 years
HPI: 70-year-old male who was found to have multivessel coronary disease with limiting flow to his LAD in the setting of abnormal stress test.� Is also relatively recently diagnosed with diabetes with an HbA1c in the sevens.� The STS risk was
discussed with the patient and ultimately the patient accepted the risks we decided to move forward with surgery.
Hospital course:
Patient was electively admitted on 10/17 for coronary artery bypass grafting surgery by Dr. Stewart. He returned to the CVICU on Levophed, insulin, and Precedex infusions. Levophed and Precedex was weaned off and patient was extubated by 2310. On
10/18 postop day 1 he was started on aspirin and Plavix. Insulin drip was continued. Left pleural chest tube and Lara catheter was removed. On 10/19 postop day #2, mediastinal chest tubes were removed. Beta-cory dose was increased to 25 mg
twice daily insulin drip was turned off and oral medications were uptitrated. Patient was downgraded to telemetry status. On 10/20 postop day #3 Labs remained stable patient went for 2 view chest x-ray that was stable and he was deemed stable for
discharge. All prescriptions were sent to his preferred pharmacy and he expressed understanding.
Home medication changes:
Started:
Acetaminophen 650 mg every 6 hours as needed for mild to moderate pain
Clopidogrel 75 mg p.o. daily for graft patency
Cyclobenzaprine 5 mg 3 times a day as needed for muscle spasms
Jardiance 25 mg p.o. daily as needed for diabetes control
Metformin 1000 mg p.o. twice a day for diabetes control
Oxycodone 5 mg every 6 hours as needed for severe pain
Stopped:
Jardiance 10 mg p.o. daily was discontinued because the dose was increased
Nifedipine 60 mg p.o. daily was discontinued because your blood pressure was low
Olmesartan/hydrochlorothiazide 40�12.5mg tablet was discontinued due to low blood pressure
Sildenafil 100 mg p.o. daily was discontinued do not restart until seen by a doctor
Discharge Plan
-
Patient Disposition: Home (Routine Discharge)
Discharge Diagnosis/Procedures: CABG
Condition: Good
Diet: Low Cholesterol and Diabetic, Carb Controlled
Activity: As tolerated and No strenuous activity
Driving Restrictions: Not until seen by your Dr
Bathing Restrictions: OK to Shower
Other Services: Cardiac Rehab
Specialty Instructions: Weigh Daily- Call MD for wt gain/loss 3 lbs overnight/5 lbs in 1 week
Stop these medications:: Jardiance 10 mg p.o. daily was discontinued because the dose was increased
Nifedipine 60 mg p.o. daily was discontinued because your blood pressure was low
Olmesartan/hydrochlorothiazide 40�12.5mg tablet was discontinued due to low blood pressure
Sildenafil 100 mg p.o. daily was discontinued do not restart until seen by a doctor
Activity Restrictions/Additional Instructions:
ACTIVITY:
-No strenuous activity: no heavy lifting, pushing, pulling anything over 15 pounds for one month
-continue to use stairs as tolerated
DRIVING RESTRICTIONS:
-No driving for one month or until approved by your surgeon
WOUND CARE:
-Shower daily. Use soap & water.
-No lotions, creams or powders on incision area.
DIET:
-continue a low fat/low cholesterol diet.
-IF you are diabetic, continue carb controlled diet.
CARDIAC REHAB:
-Please make appointment to start in 5-6 weeks with your local hospital program. (See Cardiac Rehabilitation Discharge Booklet).
SPECIALTY INSTRUCTIONS:
-Weigh yourself daily. Call your physician for any weight gain/loss of 3 lbs overnight or 5 lbs in one week.
-REPORT any clicking noise or uneven appearance of your sternum to your surgeon immediately.
-If you smoke, you are instructed to quit. The [place] smoking hotline phone number is [phone]
Stand Alone Forms: DC Instructions- Cath/EP Lab
Referrals:
CT Transitional Care Nurse [Outside] (The Cardiothoracic Transitional Care Nurse will call you to set up a visit in 1-2 days.)
[facility]. Cardiac Rehab [Outside] - 12/01/23 1:00 pm
(Cardiac Rehab Orientation appointment is on 12/01/23 at 1 PM.
The Cardiac Rehab gym is located on the first floor of the [facility].)
Ghulam Hollis MD [Active] -
(Consider sleep apnea evaluation
Call office for appointment in the next few months )
Félix Astorga DO [Non-Admitting Privileges] - 12/06/23 9:20 am
Sangita Rogers MD [Family Provider] -
Luther Stewart MD [Active] - 11/17/23 2:15 pm
Prescriptions:
New
cyclobenzaprine 10 mg Tablet
5 mg PO TID PRN (Reason: muscle spasm) Qty: 30 0RF
acetaminophen 325 mg Tablet
650 mg PO Q6HPRN PRN (Reason: mild pain,headache,temp >101F ) Qty: 0 0RF
clopidogrel 75 mg Tablet
75 mg PO DAILY Qty: 30 0RF
oxycodone 5 mg Tablet
5 mg PO Q6HPRN PRN (Reason: severe pain) Qty: 10 0RF
Jardiance 25 mg Tablet
25 mg PO DAILY Qty: 60 0RF
metformin 1,000 mg Tablet
1,000 mg PO BID@0800,1700 Qty: 30 0RF
Continued
metoprolol succinate 50 mg Tablet Extended Release 24 Hr
50 mg PO DAILY
simvastatin 20 mg Tablet
20 mg PO HS
fluticasone propionate 50 mcg/actuation [place],Suspension
1 spray INTRANASAL DAILY PRN (Reason: dry nose)
metformin 500 mg Tablet Extended Release 24 Hr
1,500 mg PO QPM
psyllium Packet
1 packet PO DAILY
aspirin 81 mg Tablet
81 mg PO DAILY
magnesium glycinate 100 mg Tablet
400 mg PO DAILY
Discontinued
sildenafil 100 mg Tablet
100 mg PO DAILY
nifedipine 60 mg Tablet Extended Release 24hr
60 mg PO DAILY
olmesartan-hydrochlorothiazide 40-12.5 mg Tablet
1 tab PO DAILY
empagliflozin 10 mg Tablet
10 mg PO DAILY
Discharge Orders:
Discharge Patient (As Directed); Ordered 10/20/23
Ordered By: Cindy Vealzquez
Care Plan Goals
Care Plan Goals:
Problem: Readiness for enhanced knowledge related to diagnosis and treatment plan
Goal: Understand your diagnosis and treatment plan needs, including medications if applicable.
Instructions: Know your diagnosis, underlying causes and treatment plan options, including medications if applicable. Consult with your health care team to learn about your diagnosis and treatment plan, including medications if applicable.
--- NOTE | 2023-10-20 10:57 | W.[place]-PDMP ---
[place]PD[place]
-
Checked the [place]- Prescription Drug Monitoring Program website, no red flags identified; safe to proceed with prescription.
[2023-10-20] MEDS: LASIX 40 MG PO (11:22)
[2023-10-20 11:26] LABS: Glucose - Point of Care 130 mg/dl (70-99)
--- NOTE | 2023-10-20 11:33 | PTCARENOTE ---
Vital signs stable. NSR. HR 80s-90s. BP 131/85. RA. Oxygen saturation 96%. Patient states he received his pneumonia vaccine within the past year. Discharge order placed. Awaiting 's arrival. Will work on discharge paperwork.
--- NOTE | 2023-10-20 15:33 | PTCARENOTE ---
Patient requested to take a nap prior to showering, since he was very tired. RIJ cordis discontinued per order and per protocol. Patient tolerated. New dressing applied. V wires cut by RN and CV PE[employer] FSCM DEVELOPER. Patient tolerated. nuclear monitoring technician discontinued
so patient can shower. Shower set up for patient. Will go over discharge instructions with patient and his after patient gets dressed.
[2023-10-20] MEDS: NSS IV (15:59)
[2023-10-20] MEDS: FLEXERIL PO (15:59)
[2023-10-20] MEDS: NEURONTIN PO (15:59)
--- NOTE | 2023-10-20 16:40 | PTCARENOTE ---
Patient asked for PRN pain medications prior to discharge. Last dose of medications updated afterwards. Patient given discharge instructions with at bedside. Medication list given and prescriptions sent electronically to [facility] in
[place]. Questions answered. PIV discontinued. Transport picked patient up via wheelchair to go to the [facility], where his will get the car.
== END 2023-10-20 17:01 | disposition home or self-care (01) | DRG 233 ==
LOC: EICU 12:27
PROVIDERS: Internal Medicine Cardiovascular Disease; Nurse Practitioner; Nurse Practitioner Adult Health; Physician Assistant Medical; ADMITTING PHYSICIAN Internal Medicine Cardiovascular Disease; CONSULT PHYSICIAN Internal Medicine Critical Care Medicine; CONSULT PHYSICIAN Thoracic Surgery (Cardiothoracic Vascular Surgery); FAMILY PHYSICIAN Family Medicine
PROC: B2151ZZ Fluoroscopy of Left Heart using Low Osmolar Contrast (ICD-10-PCS; 2023-10-14)
PROC: 4A023N7 Measurement of Cardiac Sampling and Pressure, Left Heart, Percutaneous Approach (ICD-10-PCS; 2023-10-14)
PROC: B2111ZZ Fluoroscopy of Multiple Coronary Arteries using Low Osmolar Contrast (ICD-10-PCS; 2023-10-14)
PROC: 5A1223Z Performance of Cardiac Pacing, Continuous (ICD-10-PCS; 2023-10-17)
PROC: 0213093 Bypass Coronary Artery, Four or More Arteries from Coronary Artery with Autologous Venous Tissue, Open Approach (ICD-10-PCS; 2023-10-17)
PROC: 02100Z9 Bypass Coronary Artery, One Artery from Left Internal Mammary, Open Approach (ICD-10-PCS; 2023-10-17)
PROC: 5A1221Z Performance of Cardiac Output, Continuous (ICD-10-PCS; 2023-10-17)
PROC: 06BP4ZZ Excision of Right Saphenous Vein, Percutaneous Endoscopic Approach (ICD-10-PCS; 2023-10-17)
PROC: B24BZZ4 Ultrasonography of Heart with Aorta, Transesophageal (ICD-10-PCS; 2023-10-17)
PROC: 02HK0JZ Insertion of Pacemaker Lead into Right Ventricle, Open Approach (ICD-10-PCS; 2023-10-17)
DX: I25.10 Atherosclerotic heart disease of native coronary artery without angina pectoris (principal); J95.1 Acute pulmonary insufficiency following thoracic surgery; I47.10 Supraventricular tachycardia, unspecified; D62 Acute posthemorrhagic anemia; J98.11 Atelectasis; J90 Pleural effusion, not elsewhere classified; E87.1 Hypo-osmolality and hyponatremia; E11.9 Type 2 diabetes mellitus without complications; E86.1 Hypovolemia; I11.9 Hypertensive heart disease without heart failure; E78.00 Pure hypercholesterolemia, unspecified; R94.39 Abnormal result of other cardiovascular function study; I45.10 Unspecified right bundle-branch block; R51.9 Headache, unspecified; R11.0 Nausea; E66.9 Obesity, unspecified; Z80.7 Family history of other malignant neoplasms of lymphoid, hematopoietic and related tissues; Z79.82 Long term (current) use of aspirin; Z79.84 Long term (current) use of oral hypoglycemic drugs; Z79.51 Long term (current) use of inhaled steroids; Z87.891 Personal history of nicotine dependence; Z85.51 Personal history of malignant neoplasm of bladder; Z92.21 Personal history of antineoplastic chemotherapy; Z68.30 Body mass index [BMI] 30.0-30.9, adult
CPT/HCPCS: 71045; 71046; 71250; 80048; 80053; 80061; 81003; 81015; 82248; 82330; 82565; 82805; 82810; 82947; 82962; 83036; 83735; 84132; 84302; 84520; 85014; 85018; 85027; 85049; 85610; 85730; 86850; 86900; 86901; 86920; 87077; 87086; 87186; 93005; 93312; 93320; 93325; 93458; 93880; 94002; 94003; C1894; P9045; Q9967

== ENCOUNTER → 2023-12-02 | Outpatient (REF) | payer MEDICARE, OTHER, SELFPAY | LOC: DHSLP | PROVIDERS: ATTENDING PHYSICIAN Internal Medicine Critical Care Medicine; FAMILY PHYSICIAN Family Medicine | DX: G47.33 Obstructive sleep apnea (adult) (pediatric) (principal) | CPT/HCPCS: 95800 ==

== ENCOUNTER 2023-12-26 08:23 | Outpatient (RCR) | payer MEDICARE, OTHER, SELFPAY ==
[2023-12-01 14:29] LABS: Glucose - Point of Care 106 mg/dl (70-99)
[2023-12-01 15:04] LABS: Glucose - Point of Care 104 mg/dl (70-99)
[2023-12-02 08:23] LABS: Glucose - Point of Care 115 mg/dl (70-99)
[2023-12-19 08:24] LABS: Glucose - Point of Care 145 mg/dl (70-99)
[2023-12-19 09:17] LABS: Glucose - Point of Care 142 mg/dl (70-99)
[2023-12-21 08:11] LABS: Glucose - Point of Care 139 mg/dl (70-99)
[2023-12-21 09:06] LABS: Glucose - Point of Care 136 mg/dl (70-99)
[2023-12-23 08:02] LABS: Glucose - Point of Care 148 mg/dl (70-99)
[2023-12-23 09:01] LABS: Glucose - Point of Care 137 mg/dl (70-99)
[2023-12-26 08:08] LABS: Glucose - Point of Care 133 mg/dl (70-99)
[2023-12-26 09:04] LABS: Glucose - Point of Care 133 mg/dl (70-99)
== END 2023-12-26 23:59 | disposition home or self-care (01) ==
LOC: CRHB 08:23
PROVIDERS: ATTENDING PHYSICIAN Internal Medicine Cardiovascular Disease; FAMILY PHYSICIAN Family Medicine
DX: I25.10 Atherosclerotic heart disease of native coronary artery without angina pectoris (principal); Z95.1 Presence of aortocoronary bypass graft
CPT/HCPCS: 82962; G0422; G0423

== ENCOUNTER 2024-01-27 11:31 | Outpatient (RCR) | payer MEDICARE, OTHER, SELFPAY ==
[2023-12-30 08:09] LABS: Glucose - Point of Care 153 mg/dl (70-99)
[2023-12-30 09:10] LABS: Glucose - Point of Care 133 mg/dl (70-99)
[2024-01-02 08:05] LABS: Glucose - Point of Care 132 mg/dl (70-99)
[2024-01-02 09:04] LABS: Glucose - Point of Care 131 mg/dl (70-99)
== END 2024-01-27 23:59 | disposition home or self-care (01) ==
LOC: CRHB 11:31
PROVIDERS: ATTENDING PHYSICIAN Internal Medicine Cardiovascular Disease; FAMILY PHYSICIAN Family Medicine
DX: I25.10 Atherosclerotic heart disease of native coronary artery without angina pectoris (principal); Z95.1 Presence of aortocoronary bypass graft
CPT/HCPCS: 82962; G0422; G0423

== ENCOUNTER 2024-02-24 08:32 | Outpatient (RCR) | payer MEDICARE, OTHER, SELFPAY | END 2024-02-24 23:59 | disposition home or self-care (01) | LOC: CRHB 08:32 | PROVIDERS: ATTENDING PHYSICIAN Internal Medicine Cardiovascular Disease; FAMILY PHYSICIAN Family Medicine | DX: I25.10 Atherosclerotic heart disease of native coronary artery without angina pectoris (principal); Z95.1 Presence of aortocoronary bypass graft | CPT/HCPCS: G0422; G0423 ==

== ENCOUNTER 2024-03-07 08:45 | Outpatient (RCR) | payer MEDICARE, OTHER, SELFPAY | END 2024-03-07 23:59 | disposition home or self-care (01) | LOC: CRHB 08:45 | PROVIDERS: ATTENDING PHYSICIAN Internal Medicine Cardiovascular Disease; FAMILY PHYSICIAN Family Medicine | DX: I25.10 Atherosclerotic heart disease of native coronary artery without angina pectoris (principal); Z95.1 Presence of aortocoronary bypass graft | CPT/HCPCS: G0422; G0423 ==